=== PATIENT | female | born 1945 ===

== ENCOUNTER 2020-08-04 14:25 | Emergency (ER) | payer MEDICARE ==
[~2020-08-04] VITALS: Ht 165.1 cm; Wt 81.6 kg
[2020-08-04] MEDS ORDERED: DIATRIZOATE MEGL/DIATRIZOA SOD 30 ML BTL PO ONE (15:06)
== END 2020-08-04 16:36 | disposition home or self-care (01) ==
LOC: ER 15:20
DX: Z43.1 Encounter for attention to gastrostomy (principal); I10 Essential (primary) hypertension; E11.9 Type 2 diabetes mellitus without complications; E78.5 Hyperlipidemia, unspecified; E03.9 Hypothyroidism, unspecified; Z86.73 Personal history of transient ischemic attack (TIA), and cerebral infarction without residual deficits
CPT/HCPCS: 74018; 99284

== ENCOUNTER 2020-08-17 17:50 | Inpatient (IN) | payer MEDICARE ==
[~2020-08-17] VITALS: Ht 165.1 cm; Wt 69.6 kg
[2020-08-17] MEDS ORDERED: SODIUM CHLORIDE 0.9% 1000ML 1,000 ML IV ONE ×2 (18:15→18:30)
[2020-08-17 18:30] LABS: BASOPHILS # (AUTO) 0.1 (0.0-0.1); BASOPHILS % 0.6 % (0.0-1.0); EOSINOPHILS # (AUTO) 0.3 (0.0-0.4); EOSINOPHILS % 1.4 % (0.0-6.0); HEMATOCRIT 34.2 % (34.2-44.1); HEMOGLOBIN 10.4 g/dL (12.0-16.0); LYMPHOCYTES # (AUTO) 1.2 (1.0-3.2); LYMPHOCYTES % 5.7 % (18.0-39.1); MEAN CORPUSCULAR HEMOGLOBIN 25.1 pg (28-32); MEAN CORPUSCULAR HGB CONC 30.4 g/dL (31-35); MEAN CORPUSCULAR VOLUME 82.4 fL (81-99); MONOCYTES # (AUTO) 1.1 (0.2-0.8); MONOCYTES % 5.1 % (4.4-11.3); NEUTROPHILS % 80.2 % (38.7-80.0); PLATELET COUNT 302 x10e3/uL (140-360); RED BLOOD COUNT 4.15 x10e6/uL (3.6-5.1); RED CELL DISTRIBUTION WIDTH 16.9 % (11.7-14.4)
[2020-08-17] MEDS ORDERED: CEFEPIME 2 GM/NS 0.9% 100 ML 100 ML IV ONE (18:30)
[2020-08-17] MEDS ORDERED: SODIUM CHLORIDE 0.9% 500ML 500 ML IV ONE (18:30)
[2020-08-17 18:54] LABS: ALANINE AMINOTRANSFERASE 100 IU/L (0-55); ALBUMIN 1.9 g/dL (3.5-5.0); ALBUMIN/GLOBULIN RATIO 0.3 (0.8-2.0); ALKALINE PHOSPHATASE 145 IU/L (40-150); ANION GAP 23.7 mmol/L (8-16); BLOOD UREA NITROGEN 24 mg/dL (7-26); BUN/CREATININE RATIO 36 (6-25); CALCIUM 10.9 mg/dL (8.4-10.2); CARBON DIOXIDE 18 mmol/L (22-29); CHLORIDE 94 mmol/L (98-107); CREATINE KINASE 67 IU/L (29-168); CREATININE, SERUM 0.67 mg/dL (0.57-1.11); EST GLOMERULAR FILTRATION RATE > 60 ML/MIN (60-); GLUCOSE 231 mg/dL (74-118); POTASSIUM 4.7 mmol/L (3.5-5.1); SODIUM 131 mmol/L (136-145)
[2020-08-17 19:25] LABS: CLARITY,URINE TURBID (CLEAR); COLOR,URINE BROWN (YELLOW)
[2020-08-17 19:26] LABS: BILIRUBIN,URINE SMALL (NEGATIVE); KETONES,URINE NEGATIVE (NEGATIVE); LEUKOCYTE ESTERASE ,URINE SMALL (NEGATIVE); NITRITE,URINE NEGATIVE (NEGATIVE); PROTEIN,URINE DIPSTICK >=300 (NEGATIVE); URINE UROBILINOGEN 1 mg/dL (0.2 - 1)
[2020-08-17 19:36] LABS: BACTERIA,URINE FEW /HPF; EPITHELIAL CELLS,URINE FEW /LPF; RBC,URINE >50 /HPF (0-5)
[2020-08-17] MEDS ORDERED: NOREPINEPHRINE INJ 4MG/4ML 8 MG in DEXTROSE 5% 250ML 250 ML IV PRN (20:30)
[2020-08-17] MEDS ORDERED: NOREPINEPHRINE 8 MG/D5W 250 ML 250 ML ONE (20:53)
[2020-08-17 21:37] LABS: EOSINOPHILS % (MANUAL) 1 % (0-7); LYMPHOCYTES % (MANUAL) 5 % (19-48); METAMYELOCYTES % (MANUAL) 1 % (0-0); MONOCYTES % (MANUAL) 5 % (3.4-9.0); NEUTROPHILS % (MANUAL) 86 % (40-74); PLATELET ESTIMATE ADEQUATE; PLATELET MORPHOLOGY COMMENT NORMAL; RBC MORPHOLOGY COMMENT NORMAL
[2020-08-17] MEDS: AZITHROMYCIN 500MG/SOD CHL 0.9% 250ML BAG IV SCH (22:27)
[2020-08-17] MEDS ORDERED: VANCOMYCIN HCL 1GM/NS 250 ML BAG IV SCH (22:30)
[2020-08-17] MEDS: SODIUM CHLORIDE 0.9% 1000ML 1,000 ML IV SCH (22:32)
[2020-08-17 23:20] VITALS: BP 96/63
[2020-08-17] MEDS ORDERED: CARVEDILOL12.5 MG PEG (23:38)
[2020-08-17] MEDS ORDERED: LEVEMIR FL100 UNIT/1 SC (23:38)
[2020-08-17] MEDS ORDERED: ASPIRIN CHEW81 MG PEG (23:38)
[2020-08-17] MEDS ORDERED: HUMULIN R100 UNIT/2 SQ (23:38)
[2020-08-17] MEDS ORDERED: POLYETHYLENE GL17 GM PEG (23:38)
[2020-08-17] MEDS ORDERED: ZOFRAN4 MG PEG (23:38)
[2020-08-17] MEDS ORDERED: LIPITOR20 MG PEG (23:38)
[2020-08-17] MEDS ORDERED: ACETAMINOPHEN325 M1 PEG (23:38)
[2020-08-17] MEDS ORDERED: LEVOTHYROXINE50 MCG PEG (23:38)
[2020-08-17] MEDS ORDERED: LACTULOSE20 GM/30 M PEG (23:38)
[2020-08-17] MEDS ORDERED: ACETYLCYST200 MG/1 M INH (23:38)
[2020-08-17] MEDS ORDERED: AMLODIPINE BESYL5 MG PEG (23:38)
[2020-08-17] MEDS ORDERED: ULTRAM50 MG PEG (23:38)
[2020-08-17] MEDS ORDERED: CHLORHEXIDINE118 ML PO (23:38)
[2020-08-17] MEDS ORDERED: PREVACID30 M1 PEG (23:38)
[2020-08-17] MEDS ORDERED: IPRATROPIU0.2 MG/1 M NEB (23:38)
[2020-08-17] MEDS ORDERED: HEPARIN SO5000 UNIT/ SQ (23:38)
[2020-08-17] MEDS ORDERED: PROTEIN POWDER480 GM PEG (23:38)
[2020-08-17 23:58] VITALS: BP 96/63
[2020-08-18] VITALS (26 sets, daily range): BP systolic 109–137; BP diastolic 60–71
[2020-08-18] MEDS: IPRATROPIUM BROMIDE 0.02% 2.5 ML NEB NEB SCH ×2 (00:50→15:00)
[2020-08-18 04:45] LABS: BASOPHILS # (AUTO) 0.1 (0.0-0.1); BASOPHILS % 0.3 % (0.0-1.0); EOSINOPHILS % 0.1 % (0.0-6.0); HEMATOCRIT 27.2 % (34.2-44.1); HEMOGLOBIN 8.4 g/dL (12.0-16.0); LYMPHOCYTES # (AUTO) 0.8 (1.0-3.2); LYMPHOCYTES % 2.8 % (18.0-39.1); MEAN CORPUSCULAR HGB CONC 30.9 g/dL (31-35); MONOCYTES # (AUTO) 1.7 (0.2-0.8); MONOCYTES % 6.1 % (4.4-11.3); NEUTROPHILS # (AUTO) 24.5 (2.1-6.9); PLATELET COUNT 321 x10e3/uL (140-360); RED BLOOD COUNT 3.36 x10e6/uL (3.6-5.1); RED CELL DISTRIBUTION WIDTH 16.3 % (11.7-14.4)
[2020-08-18 05:19] LABS: ALANINE AMINOTRANSFERASE 91 IU/L (0-55); ALBUMIN 1.8 g/dL (3.5-5.0); ALBUMIN/GLOBULIN RATIO 0.3 (0.8-2.0); ALKALINE PHOSPHATASE 118 IU/L (40-150); ANION GAP 12.7 mmol/L (8-16); BLOOD UREA NITROGEN 27 mg/dL (7-26); BUN/CREATININE RATIO 47 (6-25); CALCIUM 9.7 mg/dL (8.4-10.2); CARBON DIOXIDE 22 mmol/L (22-29); CHLORIDE 104 mmol/L (98-107); CREATININE, SERUM 0.57 mg/dL (0.57-1.11); EST GLOMERULAR FILTRATION RATE > 60 ML/MIN (60-); GLUCOSE 154 mg/dL (74-118); POTASSIUM 3.7 mmol/L (3.5-5.1); SODIUM 135 mmol/L (136-145)
[2020-08-18 05:37] LABS: CREATINE KINASE MB 3.7 ng/mL (0-5.0)
[2020-08-18] MEDS: SODIUM CHLORIDE 0.9% 1000ML 1,000 ML IV SCH ×3 (05:39→19:41)
[2020-08-18] MEDS ORDERED: CEFEPIME 1GM/NS 0.9% 50 ML 50 ML IV SCH (06:00)
[2020-08-18 07:00] LABS: ANISOCYTOSIS SLIGHT; LYMPHOCYTES % (MANUAL) 2 % (19-48); MONOCYTES % (MANUAL) 4 % (3.4-9.0); NEUTROPHILS % (MANUAL) 94 % (40-74)
[2020-08-18 07:01] LABS: POLYCHROMASIA FEW; TEAR DROP CELLS FEW
[2020-08-18 07:02] LABS: BURR CELLS SLIGHT; PLATELET ESTIMATE ADEQUATE; PLATELET MORPHOLOGY COMMENT NORMAL; RBC MORPHOLOGY COMMENT NORMAL
[2020-08-18] MEDS: AZITHROMYCIN 500MG/SOD CHL 0.9% 250ML BAG IV SCH (08:19)
[2020-08-18] MEDS ORDERED: HEPARIN SOD (PORCINE) 5,000 UNIT/ML VIAL SC SCH (10:00)
[2020-08-18] MEDS ORDERED: TRAMADOL HCL 50 MG TAB PEG PRN (10:00)
[2020-08-18] MEDS ORDERED: DEXTROSE 50% SYRINGE 50 ML IV PRN (10:15)
[2020-08-18] MEDS: LEVETIRACETAM 500MG/5ML VIAL 500 MG in SODIUM CHLORIDE 0.9% 100 ML 100 ML IV SCH ×2 (11:15→22:41)
[2020-08-18] MEDS: VANCOMYCIN 1GM/NS 250 ML 250 ML IV SCH ×2 (11:16→22:41)
[2020-08-18] MEDS: NYSTATIN SUSPENSION 5 ML UDC PO SCH ×3 (11:16→23:13)
[2020-08-18] MEDS: PIPER-TAZ 3.375 GM 50 ML IV SCH ×3 (11:16→23:13)
[2020-08-18] MEDS: PANTOPRAZOLE 40 MG 10ML VIAL IV SCH (11:34)
[2020-08-18] MEDS: INSULIN LISPRO 100 UNIT/1 ML 3ML VIAL SQ SCH ×3 (12:00→23:30)
[2020-08-18 12:09] LABS: ABG HCO3 23 mmol/L (22-26); ABG PCO2 32 mmHg (35-45); ABG PH 7.46 (7.35-7.45); ABG PO2 222 mmHg (80-105); ABG TCO2 24
[2020-08-18 12:19] LABS: CREATINE KINASE MB 3.1 ng/mL (0-5.0)
[2020-08-18] MEDS ORDERED: CARVEDILOL 12.5 MG TAB PEG SCH (17:00)
[2020-08-18] MEDS: INSULIN GLARGINE 100 UNITS/ML VIAL SQ SCH (19:41)
[2020-08-19] VITALS (24 sets, daily range): BP systolic 108–149; BP diastolic 50–72
[2020-08-19 03:13] LABS: BASOPHILS # (AUTO) 0.1 (0.0-0.1); BASOPHILS % 0.4 % (0.0-1.0); EOSINOPHILS # (AUTO) 0.1 (0.0-0.4); EOSINOPHILS % 0.5 % (0.0-6.0); HEMATOCRIT 23.9 % (34.2-44.1); HEMOGLOBIN 7.3 g/dL (12.0-16.0); LYMPHOCYTES # (AUTO) 1.1 (1.0-3.2); LYMPHOCYTES % 4.9 % (18.0-39.1); MEAN CORPUSCULAR HEMOGLOBIN 24.8 pg (28-32); MEAN CORPUSCULAR HGB CONC 30.5 g/dL (31-35); MEAN CORPUSCULAR VOLUME 81.3 fL (81-99); MONOCYTES # (AUTO) 1.5 (0.2-0.8); NEUTROPHILS # (AUTO) 18.7 (2.1-6.9); NEUTROPHILS % 86.2 % (38.7-80.0); PLATELET COUNT 279 x10e3/uL (140-360); RED BLOOD COUNT 2.94 x10e6/uL (3.6-5.1)
[2020-08-19 03:33] LABS: % IRON SATURATION 8 % (15-50); ALANINE AMINOTRANSFERASE 53 IU/L (0-55); ALBUMIN 1.6 g/dL (3.5-5.0); ALBUMIN/GLOBULIN RATIO 0.3 (0.8-2.0); ALKALINE PHOSPHATASE 106 IU/L (40-150); ANION GAP 12.2 mmol/L (8-16); BLOOD UREA NITROGEN 17 mg/dL (7-26); BUN/CREATININE RATIO 30 (6-25); CALCIUM 9.6 mg/dL (8.4-10.2); CARBON DIOXIDE 21 mmol/L (22-29); CHLORIDE 111 mmol/L (98-107); CREATININE, SERUM 0.57 mg/dL (0.57-1.11); EST GLOMERULAR FILTRATION RATE > 60 ML/MIN (60-); GLUCOSE 119 mg/dL (74-118); IRON 14 ug/dL (50-170); MAGNESIUM 1.6 MG/DL (1.3-2.1); PHOSPHORUS 2.5 MG/DL (2.3-4.7); POTASSIUM 3.2 mmol/L (3.5-5.1); SODIUM 141 mmol/L (136-145); TOTAL IRON BINDING CAPACITY 178 ug/dL (261-478); TRANSFERRIN 127 mg/dL (180-382)
[2020-08-19 03:54] LABS: THYROID STIMULATING HORMONE 0.004 uIU/mL (0.350-4.940)
[2020-08-19] MEDS: NYSTATIN SUSPENSION 5 ML UDC PO SCH ×4 (05:49→23:10)
[2020-08-19] MEDS: SODIUM CHLORIDE 0.9% 1000ML 1,000 ML IV SCH ×3 (05:49→20:11)
[2020-08-19] MEDS: PIPER-TAZ 3.375 GM 50 ML IV SCH ×4 (05:49→23:10)
[2020-08-19] MEDS: INSULIN LISPRO 100 UNIT/1 ML 3ML VIAL SQ SCH ×4 (05:49→23:10)
[2020-08-19] MEDS: IPRATROPIUM BROMIDE 0.02% 2.5 ML NEB NEB SCH ×3 (07:25→22:40)
[2020-08-19] MEDS ORDERED: LEVOTHYROXINE SODIUM 50 MCG TAB PEG SCH (09:00)
[2020-08-19] MEDS: PANTOPRAZOLE 40 MG 10ML VIAL IV SCH (09:10)
[2020-08-19] MEDS: ASPIRIN 81 MG CHEW TAB PEG SCH (09:11)
[2020-08-19] MEDS: LEVETIRACETAM 500MG/5ML VIAL 500 MG in SODIUM CHLORIDE 0.9% 100 ML 100 ML IV SCH ×2 (09:11→22:02)
[2020-08-19] MEDS ORDERED: SODIUM HYPOCHLORITE 0.25% 480 ML SOLN IR ONE (11:15)
[2020-08-19] MEDS: POTASSIUM CHLORIDE 20MEQ/100ML 100 ML IV SCH ×3 (11:16→13:19)
[2020-08-19] MEDS: VANCOMYCIN 1GM/NS 250 ML 250 ML IV SCH ×2 (11:16→22:47)
[2020-08-19] MEDS: INSULIN GLARGINE 100 UNITS/ML VIAL SQ SCH (20:11)
[2020-08-20] VITALS (25 sets, daily range): BP systolic 118–162; BP diastolic 50–84
[2020-08-20 03:52] LABS: BASOPHILS # (AUTO) 0.1 (0.0-0.1); BASOPHILS % 0.4 % (0.0-1.0); EOSINOPHILS # (AUTO) 0.2 (0.0-0.4); EOSINOPHILS % 1.1 % (0.0-6.0); HEMATOCRIT 23.3 % (34.2-44.1); HEMOGLOBIN 7.1 g/dL (12.0-16.0); LYMPHOCYTES # (AUTO) 1.2 (1.0-3.2); LYMPHOCYTES % 6.8 % (18.0-39.1); MEAN CORPUSCULAR HEMOGLOBIN 24.8 pg (28-32); MEAN CORPUSCULAR HGB CONC 30.5 g/dL (31-35); MEAN CORPUSCULAR VOLUME 81.5 fL (81-99); MONOCYTES # (AUTO) 1.5 (0.2-0.8); MONOCYTES % 8.4 % (4.4-11.3); NEUTROPHILS # (AUTO) 14.5 (2.1-6.9); NEUTROPHILS % 82.4 % (38.7-80.0); PLATELET COUNT 283 x10e3/uL (140-360); RED BLOOD COUNT 2.86 x10e6/uL (3.6-5.1); RED CELL DISTRIBUTION WIDTH 17.2 % (11.7-14.4)
[2020-08-20 04:09] LABS: ANION GAP 12.2 mmol/L (8-16); BLOOD UREA NITROGEN 12 mg/dL (7-26); BUN/CREATININE RATIO 21 (6-25); CALCIUM 9.5 mg/dL (8.4-10.2); CARBON DIOXIDE 19 mmol/L (22-29); CHLORIDE 112 mmol/L (98-107); CREATININE, SERUM 0.58 mg/dL (0.57-1.11); EST GLOMERULAR FILTRATION RATE > 60 ML/MIN (60-); GLUCOSE 101 mg/dL (74-118); POTASSIUM 4.2 mmol/L (3.5-5.1); SODIUM 139 mmol/L (136-145)
[2020-08-20 04:24] LABS: MAGNESIUM 1.6 MG/DL (1.3-2.1); PHOSPHORUS 2.6 MG/DL (2.3-4.7)
[2020-08-20] MEDS: SODIUM CHLORIDE 0.9% 1000ML 1,000 ML IV SCH ×3 (05:31→20:06)
[2020-08-20] MEDS: PIPER-TAZ 3.375 GM 50 ML IV SCH ×4 (05:31→23:37)
[2020-08-20] MEDS: INSULIN LISPRO 100 UNIT/1 ML 3ML VIAL SQ SCH ×3 (05:31→18:00)
[2020-08-20] MEDS: NYSTATIN SUSPENSION 5 ML UDC PO SCH ×4 (05:31→23:13)
[2020-08-20] MEDS: IPRATROPIUM BROMIDE 0.02% 2.5 ML NEB NEB SCH ×3 (07:22→23:15)
[2020-08-20] MEDS: PANTOPRAZOLE 40 MG 10ML VIAL IV SCH (09:12)
[2020-08-20] MEDS: LEVETIRACETAM 500MG/5ML VIAL 500 MG in SODIUM CHLORIDE 0.9% 100 ML 100 ML IV SCH (09:12)
[2020-08-20] MEDS: ASPIRIN 81 MG CHEW TAB PEG SCH (09:12)
[2020-08-20] MEDS: VANCOMYCIN 1GM/NS 250 ML 250 ML IV SCH (11:00)
[2020-08-20] MEDS ORDERED: ACETAMINOPHEN 325 MG TAB PO PRN (12:45)
[2020-08-20] MEDS: INSULIN GLARGINE 100 UNITS/ML VIAL SQ SCH (21:31)
[2020-08-21] VITALS (16 sets, daily range): BP systolic 138–162; BP diastolic 50–79
[2020-08-21] MEDS: IPRATROPIUM BROMIDE 0.02% 2.5 ML NEB NEB SCH ×3 (00:01→15:16)
[2020-08-21] MEDS: INSULIN LISPRO 100 UNIT/1 ML 3ML VIAL SQ SCH ×5 (00:04→23:43)
[2020-08-21] MEDS: SODIUM CHLORIDE 0.9% 1000ML 1,000 ML IV SCH ×2 (05:30→14:51)
[2020-08-21] MEDS: PIPER-TAZ 3.375 GM 50 ML IV SCH ×4 (06:42→23:43)
[2020-08-21] MEDS: NYSTATIN SUSPENSION 5 ML UDC PO SCH ×4 (06:43→23:44)
[2020-08-21 06:45] LABS: BASOPHILS # (AUTO) 0.1 (0.0-0.1); BASOPHILS % 0.3 % (0.0-1.0); EOSINOPHILS # (AUTO) 0.1 (0.0-0.4); EOSINOPHILS % 0.2 % (0.0-6.0); LYMPHOCYTES # (AUTO) 1.3 (1.0-3.2); LYMPHOCYTES % 4.9 % (18.0-39.1); MEAN CORPUSCULAR HEMOGLOBIN 25.7 pg (28-32); MEAN CORPUSCULAR HGB CONC 31.1 g/dL (31-35); MEAN CORPUSCULAR VOLUME 82.7 fL (81-99); MONOCYTES # (AUTO) 1.7 (0.2-0.8); MONOCYTES % 6.7 % (4.4-11.3); NEUTROPHILS % 86.4 % (38.7-80.0); PLATELET COUNT 255 x10e3/uL (140-360); RED BLOOD COUNT 2.72 x10e6/uL (3.6-5.1); RED CELL DISTRIBUTION WIDTH 17.2 % (11.7-14.4)
[2020-08-21 07:07] LABS: ALANINE AMINOTRANSFERASE 26 IU/L (0-55); ALBUMIN 1.6 g/dL (3.5-5.0); ALBUMIN/GLOBULIN RATIO 0.3 (0.8-2.0); ALKALINE PHOSPHATASE 103 IU/L (40-150); ANION GAP 9.3 mmol/L (8-16); BLOOD UREA NITROGEN 9 mg/dL (7-26); BUN/CREATININE RATIO 18 (6-25); CALCIUM 8.7 mg/dL (8.4-10.2); CARBON DIOXIDE 19 mmol/L (22-29); CHLORIDE 113 mmol/L (98-107); CREATININE, SERUM 0.49 mg/dL (0.57-1.11); EST GLOMERULAR FILTRATION RATE > 60 ML/MIN (60-); GLUCOSE 93 mg/dL (74-118); POTASSIUM 3.3 mmol/L (3.5-5.1); SODIUM 138 mmol/L (136-145)
[2020-08-21 07:23] LABS: HEMATOCRIT 22.5 % (34.2-44.1)
[2020-08-21] MEDS ORDERED: POTASSIUM CHLORIDE 20MEQ/100ML 100 ML IV ONE (07:45)
[2020-08-21] MEDS: ASPIRIN 81 MG CHEW TAB PEG SCH (07:57)
[2020-08-21] MEDS: PANTOPRAZOLE 40 MG 10ML VIAL IV SCH (07:57)
[2020-08-21] MEDS: VANCOMYCIN 1GM/NS 250 ML 250 ML IV SCH (12:44)
[2020-08-21] MEDS: INSULIN GLARGINE 100 UNITS/ML VIAL SQ SCH (20:52)
[2020-08-22] VITALS (17 sets, daily range): BP systolic 130–171; BP diastolic 61–94
[2020-08-22] MEDS: SODIUM CHLORIDE 0.9% 1000ML 1,000 ML IV SCH ×4 (01:26→21:54)
[2020-08-22] MEDS: NYSTATIN SUSPENSION 5 ML UDC PO SCH ×3 (06:11→17:00)
[2020-08-22] MEDS: INSULIN LISPRO 100 UNIT/1 ML 3ML VIAL SQ SCH ×3 (06:11→18:00)
[2020-08-22] MEDS: PIPER-TAZ 3.375 GM 50 ML IV SCH ×3 (06:11→17:00)
[2020-08-22 06:30] LABS: BASOPHILS # (AUTO) 0.1 (0.0-0.1); BASOPHILS % 0.4 % (0.0-1.0); EOSINOPHILS # (AUTO) 0.3 (0.0-0.4); EOSINOPHILS % 1.9 % (0.0-6.0); HEMATOCRIT 23.3 % (34.2-44.1); LYMPHOCYTES # (AUTO) 1.3 (1.0-3.2); LYMPHOCYTES % 7.6 % (18.0-39.1); MEAN CORPUSCULAR HEMOGLOBIN 24.5 pg (28-32); MEAN CORPUSCULAR VOLUME 81.5 fL (81-99); MONOCYTES # (AUTO) 1.1 (0.2-0.8); MONOCYTES % 6.8 % (4.4-11.3); NEUTROPHILS # (AUTO) 13.5 (2.1-6.9); NEUTROPHILS % 81.7 % (38.7-80.0); PLATELET COUNT 269 x10e3/uL (140-360); RED BLOOD COUNT 2.86 x10e6/uL (3.6-5.1); RED CELL DISTRIBUTION WIDTH 17.3 % (11.7-14.4)
[2020-08-22 06:45] LABS: ANION GAP 11.3 mmol/L (8-16); BLOOD UREA NITROGEN 6 mg/dL (7-26); BUN/CREATININE RATIO 12 (6-25); CALCIUM 9.1 mg/dL (8.4-10.2); CARBON DIOXIDE 19 mmol/L (22-29); CHLORIDE 114 mmol/L (98-107); EST GLOMERULAR FILTRATION RATE > 60 ML/MIN (60-); GLUCOSE 130 mg/dL (74-118); POTASSIUM 3.3 mmol/L (3.5-5.1); SODIUM 141 mmol/L (136-145)
[2020-08-22] MEDS: IPRATROPIUM BROMIDE 0.02% 2.5 ML NEB NEB SCH ×3 (07:00→23:00)
[2020-08-22 07:01] LABS: MAGNESIUM 1.5 MG/DL (1.3-2.1); PHOSPHORUS 2.5 MG/DL (2.3-4.7)
[2020-08-22] MEDS: ASPIRIN 81 MG CHEW TAB PEG SCH (09:17)
[2020-08-22] MEDS: VANCOMYCIN 1GM/NS 250 ML 250 ML IV SCH (09:17)
[2020-08-22] MEDS: PANTOPRAZOLE 40 MG 10ML VIAL IV SCH (09:17)
[2020-08-22] MEDS: AMANTADINE HCL 100 MG CAP PO SCH ×2 (09:17→16:25)
[2020-08-22] MEDS: HYDRALAZINE HCL 20 MG/ML VIAL IV PRN (21:20)
[2020-08-22] MEDS ORDERED: HYDRALAZINE HCL 20 MG/ML VIAL ONE (21:26)
[2020-08-22] MEDS: INSULIN GLARGINE 100 UNITS/ML VIAL SQ SCH (21:26)
[2020-08-23] VITALS (18 sets, daily range): BP systolic 134–178; BP diastolic 58–86
[2020-08-23] MEDS: INSULIN LISPRO 100 UNIT/1 ML 3ML VIAL SQ SCH ×4 (01:18→18:00)
[2020-08-23] MEDS: NYSTATIN SUSPENSION 5 ML UDC PO SCH ×4 (06:31→17:06)
[2020-08-23] MEDS: PIPER-TAZ 3.375 GM 50 ML IV SCH ×4 (06:31→17:06)
[2020-08-23] MEDS: SODIUM CHLORIDE 0.9% 1000ML 1,000 ML IV SCH ×3 (06:31→23:52)
[2020-08-23] MEDS: IPRATROPIUM BROMIDE 0.02% 2.5 ML NEB NEB SCH ×3 (07:15→23:10)
[2020-08-23] MEDS: VANCOMYCIN 1GM/NS 250 ML 250 ML IV SCH (08:15)
[2020-08-23] MEDS: PANTOPRAZOLE 40 MG 10ML VIAL IV SCH (08:15)
[2020-08-23] MEDS: AMANTADINE HCL 100 MG CAP PO SCH ×2 (08:15→16:40)
[2020-08-23] MEDS: ASPIRIN 81 MG CHEW TAB PEG SCH (08:15)
[2020-08-23 12:22] LABS: BASOPHILS % 0.3 % (0.0-1.0); EOSINOPHILS # (AUTO) 0.3 (0.0-0.4); EOSINOPHILS % 2.2 % (0.0-6.0); HEMATOCRIT 24.5 % (34.2-44.1); HEMOGLOBIN 7.4 g/dL (12.0-16.0); LYMPHOCYTES % 7.4 % (18.0-39.1); MEAN CORPUSCULAR HEMOGLOBIN 24.5 pg (28-32); MEAN CORPUSCULAR HGB CONC 30.2 g/dL (31-35); MEAN CORPUSCULAR VOLUME 81.1 fL (81-99); MONOCYTES % 6.9 % (4.4-11.3); NEUTROPHILS # (AUTO) 11.5 (2.1-6.9); NEUTROPHILS % 82.1 % (38.7-80.0); PLATELET COUNT 273 x10e3/uL (140-360); RED BLOOD COUNT 3.02 x10e6/uL (3.6-5.1); RED CELL DISTRIBUTION WIDTH 17.7 % (11.7-14.4)
[2020-08-23 13:05] LABS: ALANINE AMINOTRANSFERASE 12 IU/L (0-55); ALBUMIN 1.4 g/dL (3.5-5.0); ALBUMIN/GLOBULIN RATIO 0.3 (0.8-2.0); ALKALINE PHOSPHATASE 66 IU/L (40-150); ANION GAP 8.2 mmol/L (8-16); BLOOD UREA NITROGEN 5 mg/dL (7-26); BUN/CREATININE RATIO 12 (6-25); CALCIUM 8.7 mg/dL (8.4-10.2); CARBON DIOXIDE 20 mmol/L (22-29); CHLORIDE 115 mmol/L (98-107); CREATININE, SERUM 0.43 mg/dL (0.57-1.11); EST GLOMERULAR FILTRATION RATE > 60 ML/MIN (60-); GLUCOSE 117 mg/dL (74-118); POTASSIUM 3.2 mmol/L (3.5-5.1); SODIUM 140 mmol/L (136-145)
[2020-08-23] MEDS: HYDRALAZINE HCL 20 MG/ML VIAL IV PRN (19:05)
[2020-08-23] MEDS: INSULIN GLARGINE 100 UNITS/ML VIAL SQ SCH (21:23)
[2020-08-24] VITALS (24 sets, daily range): BP systolic 129–164; BP diastolic 57–81
[2020-08-24] MEDS: NYSTATIN SUSPENSION 5 ML UDC PO SCH ×4 (00:07→16:46)
[2020-08-24] MEDS: PIPER-TAZ 3.375 GM 50 ML IV SCH ×3 (00:07→12:45)
[2020-08-24] MEDS: INSULIN LISPRO 100 UNIT/1 ML 3ML VIAL SQ SCH ×4 (00:08→18:23)
[2020-08-24 04:27] LABS: BASOPHILS % 0.2 % (0.0-1.0); EOSINOPHILS # (AUTO) 0.2 (0.0-0.4); EOSINOPHILS % 1.5 % (0.0-6.0); HEMATOCRIT 23.9 % (34.2-44.1); HEMOGLOBIN 7.4 g/dL (12.0-16.0); LYMPHOCYTES # (AUTO) 1.1 (1.0-3.2); LYMPHOCYTES % 6.6 % (18.0-39.1); MEAN CORPUSCULAR HEMOGLOBIN 24.8 pg (28-32); MEAN CORPUSCULAR VOLUME 80.2 fL (81-99); MONOCYTES # (AUTO) 0.8 (0.2-0.8); MONOCYTES % 5.1 % (4.4-11.3); NEUTROPHILS # (AUTO) 14.1 (2.1-6.9); NEUTROPHILS % 85.6 % (38.7-80.0); PLATELET COUNT 342 x10e3/uL (140-360); RED BLOOD COUNT 2.98 x10e6/uL (3.6-5.1); RED CELL DISTRIBUTION WIDTH 17.5 % (11.7-14.4)
[2020-08-24 04:42] LABS: BLOOD UREA NITROGEN < 5 mg/dL (7-26); CARBON DIOXIDE 18 mmol/L (22-29); CHLORIDE 118 mmol/L (98-107); CREATININE, SERUM 0.39 mg/dL (0.57-1.11); EST GLOMERULAR FILTRATION RATE > 60 ML/MIN (60-); GLUCOSE 100 mg/dL (74-118); SODIUM 142 mmol/L (136-145)
[2020-08-24 04:46] LABS: BUN/CREATININE RATIO 13 (6-25)
[2020-08-24] MEDS: SODIUM CHLORIDE 0.9% 1000ML 1,000 ML IV SCH ×3 (05:50→21:30)
[2020-08-24] MEDS: POTASSIUM CHLORIDE 20MEQ/15ML UDC NG PRN ×2 (05:50→09:01)
[2020-08-24] MEDS: IPRATROPIUM BROMIDE 0.02% 2.5 ML NEB NEB SCH ×3 (07:15→23:55)
[2020-08-24] MEDS: VANCOMYCIN 1GM/NS 250 ML 250 ML IV SCH (08:50)
[2020-08-24] MEDS: PANTOPRAZOLE 40 MG 10ML VIAL IV SCH (08:50)
[2020-08-24] MEDS: AMANTADINE HCL 50 MG/5 ML SOLUTION NG SCH ×2 (08:50→16:45)
[2020-08-24] MEDS: ASPIRIN 81 MG CHEW TAB PEG SCH (08:51)
[2020-08-24] MEDS: MEROPENEM 500MG/ NS 50ML 50 ML IV SCH (16:45)
[2020-08-24] MEDS: INSULIN GLARGINE 100 UNITS/ML VIAL SQ SCH (21:00)
[2020-08-25] VITALS (25 sets, daily range): BP systolic 138–176; BP diastolic 61–99
[2020-08-25] MEDS: MEROPENEM 500MG/ NS 50ML 50 ML IV SCH ×3 (00:55→16:34)
[2020-08-25] MEDS: NYSTATIN SUSPENSION 5 ML UDC PO SCH ×2 (00:55→05:45)
[2020-08-25] MEDS: INSULIN LISPRO 100 UNIT/1 ML 3ML VIAL SQ SCH ×4 (00:57→18:28)
[2020-08-25] MEDS: SODIUM CHLORIDE 0.9% 1000ML 1,000 ML IV SCH (03:00)
[2020-08-25 05:09] LABS: BASOPHILS % 0.3 % (0.0-1.0); EOSINOPHILS # (AUTO) 0.2 (0.0-0.4); EOSINOPHILS % 1.3 % (0.0-6.0); HEMATOCRIT 22.4 % (34.2-44.1); LYMPHOCYTES # (AUTO) 0.9 (1.0-3.2); LYMPHOCYTES % 7.4 % (18.0-39.1); MEAN CORPUSCULAR HEMOGLOBIN 25.6 pg (28-32); MEAN CORPUSCULAR HGB CONC 31.3 g/dL (31-35); MEAN CORPUSCULAR VOLUME 82.1 fL (81-99); MONOCYTES # (AUTO) 0.8 (0.2-0.8); MONOCYTES % 6.6 % (4.4-11.3); NEUTROPHILS % 83.6 % (38.7-80.0); PLATELET COUNT 326 x10e3/uL (140-360); RED BLOOD COUNT 2.73 x10e6/uL (3.6-5.1); RED CELL DISTRIBUTION WIDTH 17.9 % (11.7-14.4)
[2020-08-25 05:21] LABS: ANION GAP 9.7 mmol/L (8-16); BLOOD UREA NITROGEN < 5 mg/dL (7-26); CALCIUM 8.4 mg/dL (8.4-10.2); CARBON DIOXIDE 19 mmol/L (22-29); CHLORIDE 117 mmol/L (98-107); CREATININE, SERUM 0.42 mg/dL (0.57-1.11); EST GLOMERULAR FILTRATION RATE > 60 ML/MIN (60-); GLUCOSE 117 mg/dL (74-118); POTASSIUM 3.7 mmol/L (3.5-5.1); SODIUM 142 mmol/L (136-145)
[2020-08-25 05:24] LABS: BUN/CREATININE RATIO 12 (6-25)
[2020-08-25] MEDS: IPRATROPIUM BROMIDE 0.02% 2.5 ML NEB NEB SCH ×3 (08:05→23:10)
[2020-08-25] MEDS: PANTOPRAZOLE 40 MG 10ML VIAL IV SCH (09:25)
[2020-08-25] MEDS: ASPIRIN 81 MG CHEW TAB PEG SCH (09:25)
[2020-08-25] MEDS: AMANTADINE HCL 50 MG/5 ML SOLUTION NG SCH ×2 (09:25→16:34)
[2020-08-25] MEDS: VANCOMYCIN 1GM/NS 250 ML 250 ML IV SCH (10:00)
[2020-08-25] MEDS: INSULIN GLARGINE 100 UNITS/ML VIAL SQ SCH (21:21)
[2020-08-26] VITALS (20 sets, daily range): BP systolic 110–176; BP diastolic 56–99
[2020-08-26] MEDS: INSULIN LISPRO 100 UNIT/1 ML 3ML VIAL SQ SCH ×4 (01:01→18:00)
[2020-08-26] MEDS: MEROPENEM 500MG/ NS 50ML 50 ML IV SCH ×3 (01:01→17:15)
[2020-08-26 05:51] LABS: BASOPHILS % 0.3 % (0.0-1.0); EOSINOPHILS # (AUTO) 0.2 (0.0-0.4); HEMATOCRIT 24.1 % (34.2-44.1); HEMOGLOBIN 7.2 g/dL (12.0-16.0); LYMPHOCYTES % 9.5 % (18.0-39.1); MEAN CORPUSCULAR HEMOGLOBIN 24.2 pg (28-32); MEAN CORPUSCULAR HGB CONC 29.9 g/dL (31-35); MEAN CORPUSCULAR VOLUME 81.1 fL (81-99); MONOCYTES # (AUTO) 0.9 (0.2-0.8); MONOCYTES % 7.9 % (4.4-11.3); NEUTROPHILS # (AUTO) 8.6 (2.1-6.9); NEUTROPHILS % 79.6 % (38.7-80.0); PLATELET COUNT 373 x10e3/uL (140-360); RED BLOOD COUNT 2.97 x10e6/uL (3.6-5.1); RED CELL DISTRIBUTION WIDTH 17.8 % (11.7-14.4)
[2020-08-26 06:20] LABS: ANION GAP 9.5 mmol/L (8-16); BLOOD UREA NITROGEN < 5 mg/dL (7-26); CALCIUM 8.7 mg/dL (8.4-10.2); CARBON DIOXIDE 21 mmol/L (22-29); CHLORIDE 113 mmol/L (98-107); CREATININE, SERUM 0.44 mg/dL (0.57-1.11); EST GLOMERULAR FILTRATION RATE > 60 ML/MIN (60-); GLUCOSE 111 mg/dL (74-118); POTASSIUM 3.5 mmol/L (3.5-5.1); SODIUM 140 mmol/L (136-145)
[2020-08-26 06:25] LABS: BUN/CREATININE RATIO 11 (6-25)
[2020-08-26] MEDS: HYDRALAZINE HCL 20 MG/ML VIAL IV PRN (06:31)
[2020-08-26] MEDS: IPRATROPIUM BROMIDE 0.02% 2.5 ML NEB NEB SCH ×2 (07:23→15:25)
[2020-08-26] MEDS ORDERED: METOPROLOL TARTRATE INJ 1 MG/ML VIAL IV ONE (08:15)
[2020-08-26] MEDS: PANTOPRAZOLE 40 MG 10ML VIAL IV SCH (09:13)
[2020-08-26] MEDS: ASPIRIN 81 MG CHEW TAB PEG SCH (09:13)
[2020-08-26] MEDS: CARVEDILOL 12.5 MG TAB PO SCH ×2 (09:14→17:21)
[2020-08-26] MEDS: AMANTADINE HCL 50 MG/5 ML SOLUTION NG SCH ×2 (12:10→17:16)
== END 2020-08-26 20:35 | DRG 870 ==
LOC: ER 18:22 → ERHOLD 21:30 → ICU 22:56
PROVIDERS: ADMIT Internal Medicine; ATTEND Internal Medicine
PROC: 02HV33Z Insertion of Infusion Device into Superior Vena Cava, Percutaneous Approach (ICD-10-PCS; principal; 2020-08-17)
PROC: 5A1955Z Respiratory Ventilation, Greater than 96 Consecutive Hours (ICD-10-PCS; 2020-08-17)
PROC: B548ZZA Ultrasonography of Superior Vena Cava, Guidance (ICD-10-PCS; 2020-08-17)
PROC: 3E043XZ Introduction of Vasopressor into Central Vein, Percutaneous Approach (ICD-10-PCS; 2020-08-17)
PROC: 5A12012 Performance of Cardiac Output, Single, Manual (ICD-10-PCS; 2020-08-17)
PROC: 02HV33Z Insertion of Infusion Device into Superior Vena Cava, Percutaneous Approach (ICD-10-PCS; 2020-08-18)
PROC: B548ZZA Ultrasonography of Superior Vena Cava, Guidance (ICD-10-PCS; 2020-08-18)
DX: A41.9 Sepsis, unspecified organism (principal); L89.323 Pressure ulcer of left buttock, stage 3; L89.313 Pressure ulcer of right buttock, stage 3; L89.154 Pressure ulcer of sacral region, stage 4; R65.21 Severe sepsis with septic shock; J96.90 Respiratory failure, unspecified, unspecified whether with hypoxia or hypercapnia; I46.9 Cardiac arrest, cause unspecified; J69.0 Pneumonitis due to inhalation of food and vomit; G93.6 Cerebral edema; R57.0 Cardiogenic shock; M86.9 Osteomyelitis, unspecified; Z16.24 Resistance to multiple antibiotics; R40.3 Persistent vegetative state; Z16.12 Extended spectrum beta lactamase (ESBL) resistance; E03.9 Hypothyroidism, unspecified; J43.9 Emphysema, unspecified; I48.91 Unspecified atrial fibrillation; Z79.01 Long term (current) use of anticoagulants; I10 Essential (primary) hypertension; D63.8 Anemia in other chronic diseases classified elsewhere; Z93.1 Gastrostomy status; Z74.01 Bed confinement status; Z66 Do not resuscitate; R43.0 Anosmia; I69.398 Other sequelae of cerebral infarction; E11.9 Type 2 diabetes mellitus without complications; E78.5 Hyperlipidemia, unspecified; Z93.0 Tracheostomy status; E87.6 Hypokalemia; Z87.01 Personal history of pneumonia (recurrent); B96.89 Other specified bacterial agents as the cause of diseases classified elsewhere; B96.4 Proteus (mirabilis) (morganii) as the cause of diseases classified elsewhere; B96.1 Klebsiella pneumoniae [K. pneumoniae] as the cause of diseases classified elsewhere
CPT/HCPCS: 36415; 36555; 36569; 36600; 70450; 71045; 71250; 74018; 80048; 80053; 80202; 81001; 82550; 82553; 82607; 82746; 82805; 82948; 83540; 83605; 83735; 84100; 84443; 84466; 84484; 85025; 87040; 87071; 87086; 87186; 87205; 93005; 93306; 93971; 94002; 94003; 94640; 95812; 99251; J0360; J0456; J0692; J1815; J2543; J3370; J3480; J7030; J7040; U0002

== ENCOUNTER 2020-09-14 19:33 | Inpatient (IN) | payer MEDICARE ==
[~2020-09-14] VITALS: Ht 160 cm; Wt 63.0 kg
[~2020-09-14 19:33] MED LIST: ACETAMINOPHEN325 M1 PEG; ACETYLCYST200 MG/1 M INH; AMLODIPINE BESYL5 MG PEG; ASPIRIN CHEW81 MG PEG; CARVEDILOL12.5 MG PEG; CHLORHEXIDINE118 ML PO; HEPARIN SO5000 UNIT/ SQ; HUMULIN R100 UNIT/2 SQ; IPRATROPIU0.2 MG/1 M NEB; LACTULOSE20 GM/30 M PEG; LEVEMIR FL100 UNIT/1 SC; LEVOTHYROXINE50 MCG PEG; LIPITOR20 MG PEG; POLYETHYLENE GL17 GM PEG; PREVACID30 M1 PEG; PROTEIN POWDER480 GM PEG; ULTRAM50 MG PEG; ZOFRAN4 MG PEG
--- NOTE | 2020-09-14 20:23 | Emergency Department Note ---
History of Present Illnes History of Present Illness Chief Complaint: General Medicine Complaints History of Present Illness This is a 75 year old Unknown female came in [facility] from [facility] for evaluation of abnormal labs, pt reported to have elevated creatinine level, low Hgb level, elevated WBC levels, pt is a DNR, on a mechanical ventilator, no report from facility regarding COVID testing, pt has had a goyal catheter for 2 weeks with cloudy, sediment filled urine, PT HAS DNR PAPERWORK FROM RETIREMENT. PER RECORD FROM PT'S LAST ADMISSION TO THE FACILITY SHE WAS DNR THEN WELL. Historian: Application Analyst/EMS Arrival Mode: [facility] History limited by: condition of the patient (PT IN PERSISTENT VEGATATIVE STATE WHICH IS HER BASELINE) Occupational Analyst Required: No Onset (how long ago): unknown Location: NONE Quality: PT IN VEGATATIVE STATE, Progression: unable to specify Past Medical/Family History Physician Review I have reviewed the patient's past medical and family history. Any updates have been documented here. Past Medical History Recent Fever: Yes Clinical Suspicion of Infectio: Yes New/Unexplained Change in Ment: No Past Medical History: Hypertension, Diabetes, CVA, A-Fib, Hypothyroidism, Hyperlipedemia Other Medical History: TRACH(D/T RESP FAILURE)02 6 LPM Other Surgery: TRACH(O2 DEPENDENT) CRANIOTOMY PEG Social History Unable to obtain PSH: Unable to obtain due to, other (PT IN PERSISTENT VEGETATIVE STATE) Review of Systems ROS Narrative Unable to obtain ROS: Unable to obtain due to, other (PT IN PERSISTENT VEGETATIVE STATE) Physical Exam Related Data Allergies: Coded Allergies: No Known Allergies (Unverified , 08/04/20) Triage Vital Signs Vital Signs Date Time Temp Pulse Resp B/P (MAP) Pulse Ox O2 Delivery O2 Flow Rate FiO2 09/14/20 19:38 90 30 135/78 96 Trach Collar Vital signs reviewed: Yes Physical Exam CONSTITUTIONAL Constitutional: Present well-developed, Present well-nourished HENT HENT: Present normocephalic, Present atraumatic, Present oropharynx clear/moist, Present nose normal HENT L/R: Present left ext ear normal, Present right ext ear normal EYES Eyes: Reports PERRL, Reports conjunctivae normal NECK Neck: Present ROM normal, Present supple, Present other (TRACH PRESENT) PULMONARY Pulmonary: Present effort normal, Present rhonchi (THROUGHOUT) CARDIOVASCULAR Cardiovascular: Present irregular rhythm, Present heart sounds normal, Present capillary refill normal, Present normal rate GASTROINTESTINAL Abdominal: Present soft, Present nontender, Present bowel sounds normal GENITOURINARY Genitourinary: Present exam deferred, Present other (INDWELLING GOYAL CATHETER PRESENT ON ARRIVAL) SKIN Skin: Present warm, Present dry MUSCULOSKELETAL Musculoskeletal: Present ROM normal NEUROLOGICAL Neurological: Present other (UNABLE TO ASSESS PT IN PERSISTENT VEGETATIVE STATE) PSYCHOLOGICAL Psychological: Present other (UNABLE TO ASSESS PT IN PERSITENT VEGETATIVE STATE) Results Laboratory Laboratory Laboratory Tests Test 09/14/20 20:15 09/14/20 19:47 09/14/20 19:43 White Blood Count 16.03 x10e3/uL (4.8-10.8) Red Blood Count 2.83 x10e6/uL (3.6-5.1) Hemoglobin 6.6 g/dL (12.0-16.0) Hematocrit 21.9 % (34.2-44.1) Mean Corpuscular Volume 77.4 fL (81-99) Mean Corpuscular Hemoglobin 23.3 pg (28-32) Mean Corpuscular Hemoglobin Concent 30.1 g/dL (31-35) Red Cell Distribution Width 18.5 % (11.7-14.4) Platelet Count 271 x10e3/uL (140-360) Neutrophils (%) (Auto) 87.5 % (38.7-80.0) Lymphocytes (%) (Auto) 4.8 % (18.0-39.1) Monocytes (%) (Auto) 5.2 % (4.4-11.3) Eosinophils (%) (Auto) 1.4 % (0.0-6.0) Basophils (%) (Auto) 0.2 % (0.0-1.0) Neutrophils # (Auto) 14.0 (2.1-6.9) Lymphocytes # (Auto) 0.8 (1.0-3.2) Monocytes # (Auto) 0.8 (0.2-0.8) Eosinophils # (Auto) 0.2 (0.0-0.4) Basophils # (Auto) 0.0 (0.0-0.1) Absolute Immature Granulocyte (auto 0.14 x10e3/uL (0-0.1) Urine Color Yellow (YELLOW) Urine Clarity Turbid (CLEAR) Urine pH 9 (5 - 7) Urine Specific Franklin 1.015 (1.010-1.025) Urine Protein 1+ (NEGATIVE) Urine Glucose (UA) Negative (NEGATIVE) Urine Ketones Negative (NEGATIVE) Urine Blood Large (NEGATIVE) Urine Nitrite Positive (NEGATIVE) Urine Bilirubin Negative (NEGATIVE) Urine Urobilinogen 1 mg/dL (0.2 - 1) Urine Leukocyte Esterase Large (NEGATIVE) Urine RBC 11-20 /HPF (0-5) Urine WBC 11-20 /HPF (0-5) Urine Epithelial Cells Moderate /LPF (NONE) Urine Calcium Oxalate Crystals Few (FEW) Urine Amorphous Sediment Moderate (FEW) Urine Bacteria Many /HPF (NONE) Sodium Level 135 mmol/L (136-145) Potassium Level 4.1 mmol/L (3.5-5.1) Chloride Level 99 mmol/L (98-107) Carbon Dioxide Level 25 mmol/L (22-29) Anion Gap 15.1 mmol/L (8-16) Blood Urea Nitrogen 24 mg/dL (7-26) Creatinine 0.57 mg/dL (0.57-1.11) Estimat Glomerular Filtration Rate > 60 ML/MIN (60-) BUN/Creatinine Ratio 42 (6-25) Glucose Level 99 mg/dL (74-118) Lactic Acid Level 1.3 mmol/L (0.5-2.0) Calcium Level 9.5 mg/dL (8.4-10.2) Total Bilirubin 0.6 mg/dL (0.2-1.2) Aspartate Amino Transf (AST/SGOT) 22 IU/L (5-34) Alanine Aminotransferase (ALT/SGPT) 13 IU/L (0-55) Alkaline Phosphatase 105 IU/L (40-150) Creatine Kinase 27 IU/L (29-168) Creatine Kinase MB 2.00 ng/mL (0-5.0) Troponin I 0.001 ng/mL (0-0.300) B-Type Natriuretic Peptide 408.4 pg/mL (0-100) Total Protein 8.2 g/dL (6.5-8.1) Albumin 1.7 g/dL (3.5-5.0) Globulin 6.5 g/dL (2.3-3.5) Albumin/Globulin Ratio 0.3 (0.8-2.0) Coronavirus (PCR) Not detected (NOTDETECTED) Influenza Virus Types A,B Antigen Negative (NEGATIVE) Laboratory Tests Test 09/14/20 19:47 09/14/20 19:43 Imaging Imaging results reviewed: Yes Impressions Procedure: [id number] DX/CHEST SINGLE (PORTABLE) Exam Date: 09/14/20 Exam Time: 2033 REPORT STATUS: Signed EXAMINATION: CHEST SINGLE (PORTABLE) INDICATION: ^Y ^reported wbc of 25k, ^20200914 ^2033 ^Y COMPARISON: 08/25/2012 FINDINGS: AP view TUBES and LINES: Stable tracheostomy tube. LUNGS: Limited by rotation. Lungs are well inflated. Diffuse bilateral airspace opacities, slightly increased from prior exam. PLEURA: No pneumothorax. Suspected trace bilateral pleural effusions. HEART AND MEDIASTINUM: The cardiomediastinal silhouette is enlarged, accentuated by rotation.. BONES AND SOFT TISSUES: No acute osseous lesion. Soft tissues are unremarkable. UPPER ABDOMEN: No free air under the diaphragm. IMPRESSION: Diffuse bilateral airspace opacities, representing edema and/or pneumonia, slightly worsened compared to prior x-ray. Signed by: Dr. Boston Dockery MD on 09/14/2020 9:17 PM Dictated By: BOSTON DOCKERY MD 16 Transcribed By: MAEGAN on 09/14/202116 COPY TO: MELITON SCRUGGS MD~ Procedures 12 Lead ECG Interpretation ECG Interpretation : ECG: ECG 1 Occupational Analyst: Interpreted by ED physician Date: Sep 14, 2020 Time: 19:59 Rhythm: atrial fibrillation Rate: normal BPM: 83 QRS axis: normal ST segments normal: No (NON SPECICIFC CHANGES) T waves normal: No T wave inversion: aVF, V3 T waves flattening: II, III, V4, V5, V6 Other findings: prolonged QTc interval Clinical Impression: abnormal ECG Assessment & Plan Medical Decision Making [facility] PT WITH REPORTED ABNORMAL LABS CBC, CMP, EKG, CXR, CARDIAC ENZYMES, UA, ORDERED TO EVAL FOR ELECTROLYTE ABNORMALITY, RENAL FAILURE, UTI, PNEUMONIA, ANEMIA, PULMONARY EDEMA I SPOKE WITH DR Nirmal MACDONALD AND DR MA, PLACE IN ICU DUE TO VENT DEPENDENCE Assessment & Plan Final Impression: (1) Anemia (2) UTI (urinary tract infection) due to urinary indwelling catheter (3) Indwelling catheter present on admission (4) Pneumonia Depart Disposition: ADMITTED Last Vital Signs Date Time Temp Pulse Resp B/P (MAP) Pulse Ox O2 Delivery O2 Flow Rate FiO2 09/14/20 19:38 90 30 135/78 96 Trach Collar Home Meds Reported Medications Protein Supplement (Protein Powder) 480 Gm Powder, 1 PACKET PEG BID 08/17/20 Tramadol Hcl (ULTRAM) 50 Mg Tablet, 50 MG PEG Q6H PRN for MODERATE PAIN (4-6), TAB 08/17/20 Polyethylene Glycol 3350 (POLYETHYLENE GLYCOL 3350) 17 Gm Powd.pack, 17 GM PEG DAILY, PACKET 08/17/20 Ondansetron Hcl* (ZOFRAN*) 4 Mg Tablet, 4 MG PEG Q8H PRN for NAUSEA AND VOMITING 08/17/20 Levothyroxine Sodium (LEVOTHYROXINE SODIUM) 50 Mcg Tablet, 25 MCG PEG DAILY, #30 TAB 08/17/20 Lansoprazole (PREVACID) 30 Mg Tab.rap.dr, 30 MG PEG DAILY 08/17/20 Lactulose (LACTULOSE) 20 Gm/30 Ml Solution, 30 ML PEG Q12H PRN for CONSTIPATION, EACH 08/17/20 Ipratropium Dyke (IPRATROPIUM BROMIDE) 0.2 Mg/1 Ml Solution, 2.5 ML NEB Q8H, EACH 08/17/20 Insulin Regular, Human (HUMULIN R) 100 Unit/1 Ml Vial, 1 UNIT SQ Q6H 08/17/20 Insulin Detemir (Levemir Flextouch) 100 Unit/1 Ml Insuln.pen, 10 UNITS SC HS, UNIT 08/17/20 Heparin Sodium,Porcine (HEPARIN SODIUM) 5,000 Unit/1 Ml Vial, 5000 UNITS SQ Q12H, ML 08/17/20 Chlorhexidine Gluconate (CHLORHEXIDINE GLUCONATE) 118 Ml Liquid, 15 ML PO Q12H 08/17/20 Carvedilol (CARVEDILOL) 12.5 Mg Tablet, 25 MG PEG BID, #60 TAB 08/17/20 Atorvastatin Calcium (LIPITOR) 20 Mg Tablet, 40 MG PEG HS, TAB 08/17/20 Amlodipine Besylate (AMLODIPINE BESYLATE) 5 Mg Tablet, 5 MG PEG DAILY, #30 TAB 08/17/20 Aspirin (ASPIRIN CHEW) 81 Mg Chew, 81 MG PEG DAILY, #30 TAB 08/17/20 Acetylcysteine (ACETYLCYSTEINE) 200 Mg/1 Ml Vial, 4 ML INH Q12H 08/17/20 Acetaminophen (ACETAMINOPHEN) 325 Mg Tablet, 650 MG PEG Q6H PRN for Mild Pain (1-3) or Fever>100.8, TAB 08/17/20 MELITON SCRUGGS MD Sep 14, 2020 20:23
[2020-09-14 20:32] LABS: BASOPHILS % 0.2 % (0.0-1.0); CLARITY,URINE TURBID (CLEAR); COLOR,URINE YELLOW (YELLOW); EOSINOPHILS # (AUTO) 0.2 (0.0-0.4); EOSINOPHILS % 1.4 % (0.0-6.0); LYMPHOCYTES # (AUTO) 0.8 (1.0-3.2); LYMPHOCYTES % 4.8 % (18.0-39.1); MEAN CORPUSCULAR HEMOGLOBIN 23.3 pg (28-32); MEAN CORPUSCULAR HGB CONC 30.1 g/dL (31-35); MEAN CORPUSCULAR VOLUME 77.4 fL (81-99); MONOCYTES # (AUTO) 0.8 (0.2-0.8); MONOCYTES % 5.2 % (4.4-11.3); NEUTROPHILS % 87.5 % (38.7-80.0); PLATELET COUNT 271 x10e3/uL (140-360); RED BLOOD COUNT 2.83 x10e6/uL (3.6-5.1); RED CELL DISTRIBUTION WIDTH 18.5 % (11.7-14.4)
[2020-09-14 20:33] LABS: BILIRUBIN,URINE NEGATIVE (NEGATIVE); KETONES,URINE NEGATIVE (NEGATIVE); LEUKOCYTE ESTERASE ,URINE LARGE (NEGATIVE); NITRITE,URINE POSITIVE (NEGATIVE); PROTEIN,URINE DIPSTICK 1+ (NEGATIVE); URINE UROBILINOGEN 1 mg/dL (0.2 - 1)
[2020-09-14 20:34] LABS: HEMATOCRIT 21.9 % (34.2-44.1); HEMOGLOBIN 6.6 g/dL (12.0-16.0)
[2020-09-14 20:43] LABS: BACTERIA,URINE MANY /HPF; EPITHELIAL CELLS,URINE MODERATE /LPF
[2020-09-14 20:44] LABS: AMORPHOUS SEDIMENT,URINE MODERATE (FEW); CALCIUM OXALATE CRYSTALS,UR FEW (FEW)
[2020-09-14] MEDS ORDERED: CEFTRIAXONE SOD 1 GM/NS 50 ML 50 ML IV ONE (20:45)
[2020-09-14 20:47] LABS: ALANINE AMINOTRANSFERASE 13 IU/L (0-55); ALBUMIN 1.7 g/dL (3.5-5.0); ALBUMIN/GLOBULIN RATIO 0.3 (0.8-2.0); ALKALINE PHOSPHATASE 105 IU/L (40-150); ANION GAP 15.1 mmol/L (8-16); BLOOD UREA NITROGEN 24 mg/dL (7-26); BUN/CREATININE RATIO 42 (6-25); CALCIUM 9.5 mg/dL (8.4-10.2); CARBON DIOXIDE 25 mmol/L (22-29); CHLORIDE 99 mmol/L (98-107); CREATINE KINASE 27 IU/L (29-168); CREATININE, SERUM 0.57 mg/dL (0.57-1.11); EST GLOMERULAR FILTRATION RATE > 60 ML/MIN (60-); GLUCOSE 99 mg/dL (74-118); POTASSIUM 4.1 mmol/L (3.5-5.1); SODIUM 135 mmol/L (136-145)
--- NOTE | 2020-09-14 21:20 | Diagnostic Imaging Report ---
EXAMINATION: CHEST SINGLE (PORTABLE) INDICATION: ^Y ^reported wbc of 25k, ^20200914 ^2033 ^Y COMPARISON: 08/25/2012 FINDINGS: AP view TUBES and LINES: Stable tracheostomy tube. LUNGS: Limited by rotation. Lungs are well inflated. Diffuse bilateral airspace opacities, slightly increased from prior exam. PLEURA: No pneumothorax. Suspected trace bilateral pleural effusions. HEART AND MEDIASTINUM: The cardiomediastinal silhouette is enlarged, accentuated by rotation.. BONES AND SOFT TISSUES: No acute osseous lesion. Soft tissues are unremarkable. UPPER ABDOMEN: No free air under the diaphragm. IMPRESSION: Diffuse bilateral airspace opacities, representing edema and/or pneumonia, slightly worsened compared to prior x-ray. Signed by: Dr. Boston Vásquez MD on 09/14/2020 9:17 PM
[2020-09-14] MEDS ORDERED: CEFTRIAXONE SOD 1 GRAM/0.9% SOD CHL 50ML BAG IV SCH (21:30)
[2020-09-14] MEDS ORDERED: SODIUM CHLORIDE FLUSH 10 ML SYR INJ PRN (21:30)
[2020-09-14] MEDS ORDERED: SODIUM CHLORIDE 0.9% 250ML 250 ML IV ONE (21:30)
[2020-09-14] MEDS ORDERED: FUROSEMIDE INJ 10 MG/ML 2 ML VIAL IV ONE (21:30)
[2020-09-14] MEDS ORDERED: AZITHROMYCIN 500MG/SOD CHL 0.9% 250ML BAG IV SCH (22:00)
[2020-09-14 23:00] VITALS: BP 101/57
[2020-09-14] MEDS ORDERED: VANCOMYCIN HCL 1GM/NS 250 ML BAG IV SCH (23:00)
[2020-09-15] VITALS (25 sets, daily range): BP systolic 93–139; BP diastolic 50–76
--- NOTE | 2020-09-15 02:14 | Diagnostic Imaging Report ---
EXAMINATION: CHEST XRAY LINE PLACEMENT INDICATION: ^PICC INSERTION COMPARISON: 09/14/2020 FINDINGS: AP view TUBES and LINES: Stable tracheostomy tube. Interval placement of right PICC with tip projecting over cavoatrial junction. LUNGS: Limited by slight rotation. Lungs are well inflated. Again seen bilateral airspace opacities. PLEURA: No significant pleural effusion or pneumothorax. HEART AND MEDIASTINUM: The cardiomediastinal silhouette is enlarged. BONES AND SOFT TISSUES: No acute osseous lesion. Soft tissues are unremarkable. UPPER ABDOMEN: No free air under the diaphragm. IMPRESSION: New right PICC in place with tip projecting over cavoatrial junction. No pneumothorax. Redemonstration of diffuse bilateral airspace opacities. Signed by: Dr. Boston Vásquez MD on 09/15/2020 2:10 AM
[2020-09-15 09:15] LABS: BASOPHILS % 0.2 % (0.0-1.0); EOSINOPHILS # (AUTO) 0.1 (0.0-0.4); EOSINOPHILS % 0.7 % (0.0-6.0); HEMATOCRIT 26.1 % (34.2-44.1); HEMOGLOBIN 8.1 g/dL (12.0-16.0); LYMPHOCYTES # (AUTO) 0.8 (1.0-3.2); LYMPHOCYTES % 6.1 % (18.0-39.1); MEAN CORPUSCULAR HEMOGLOBIN 23.8 pg (28-32); MEAN CORPUSCULAR VOLUME 76.5 fL (81-99); MONOCYTES # (AUTO) 0.9 (0.2-0.8); MONOCYTES % 6.4 % (4.4-11.3); NEUTROPHILS # (AUTO) 11.5 (2.1-6.9); NEUTROPHILS % 85.9 % (38.7-80.0); PLATELET COUNT 232 x10e3/uL (140-360); RED BLOOD COUNT 3.41 x10e6/uL (3.6-5.1); RED CELL DISTRIBUTION WIDTH 17.1 % (11.7-14.4)
[2020-09-15 09:33] LABS: ALANINE AMINOTRANSFERASE 13 IU/L (0-55); ALBUMIN 1.7 g/dL (3.5-5.0); ALBUMIN/GLOBULIN RATIO 0.3 (0.8-2.0); ALKALINE PHOSPHATASE 104 IU/L (40-150); BLOOD UREA NITROGEN 20 mg/dL (7-26); BUN/CREATININE RATIO 34 (6-25); CALCIUM 9.2 mg/dL (8.4-10.2); CARBON DIOXIDE 24 mmol/L (22-29); CHLORIDE 101 mmol/L (98-107); CREATININE, SERUM 0.58 mg/dL (0.57-1.11); EST GLOMERULAR FILTRATION RATE > 60 ML/MIN (60-); GLUCOSE 87 mg/dL (74-118); SODIUM 134 mmol/L (136-145)
[2020-09-15 10:01] LABS: CREATINE KINASE MB 1.6 ng/mL (0-5.0)
[2020-09-15] MEDS ORDERED: POTASSIUM CHLORIDE 20 MEQ TAB CR PO PRN (10:45)
[2020-09-15] MEDS ORDERED: DEXTROSE 50% SYRINGE 50 ML IV PRN (10:45)
[2020-09-15] MEDS ORDERED: DOCUSATE SODIUM 100 MG CAP PO PRN (10:45)
[2020-09-15] MEDS ORDERED: ACETAMINOPHEN 325 MG TAB PO PRN (10:45)
[2020-09-15] MEDS ORDERED: HYDRALAZINE HCL 20 MG/ML VIAL IV PRN (10:45)
[2020-09-15] MEDS ORDERED: ONDANSETRON HCL INJ 2MG/ML 2ML 2 MG/ML VIAL IV PRN (10:45)
[2020-09-15] MEDS ORDERED: TRAMADOL HCL 50 MG TAB PO PRN (10:45)
[2020-09-15] MEDS ORDERED: SIMETHICONE 80 MG CHEW PO PRN (10:45)
[2020-09-15] MEDS ORDERED: ALBUTEROL/IPRATROPIUM 3 ML NEB NEB PRN (10:45)
[2020-09-15] MEDS ORDERED: ACETYLCYSTEINE 20% INHAL SOLN 30 ML VIAL INH SCH (13:30)
[2020-09-15] MEDS ORDERED: CHLORHEXIDINE GLUCONATE 4% 120 ML BTL TOP SCH (13:30)
[2020-09-15] MEDS ORDERED: LACTULOSE SYRUP 20 GM/30 ML UDC PEG PRN (13:30)
--- NOTE | 2020-09-15 13:36 | History and Physical ---
CHIEF COMPLAINT: Altered mental status at baseline; baseline vegetative state; anemia; and UTI. HISTORY OF PRESENT ILLNESS: This is a 75-year-old -[place] female, who is currently residing at [facility] on a mechanical ventilator. Her history is complicated. She had CVA in the past, had a craniotomy, who apparently back in July of 2020 this year came in with cardiac arrest and was in CPR in progress, now presents with underlying anemia and worsening condition. The patient at baseline, is at a vegetative state. She is chronically on respiratory failure with tracheostomy on the vent. She also has a PEG tube placement for feeding. She also has significant sacral wound. The patient was seen and evaluated at bedside on the medical floor in the ICU. She is unresponsive. She is at her baseline. She is at vegetative state. She is on a mechanical ventilation. She has a significant sacral wound. The patient was found to be anemic and possibly underlying urinary tract infection noted. Critical Care has been consulted including Wound Care and ID. She is on broad-spectrum IV antibiotic therapy. REVIEW OF SYSTEMS: I am not able to obtain review of systems. ALLERGIES: NO KNOWN DRUG ALLERGIES. MEDICATIONS: At the half-way shows: 1. Acetaminophen. 2. Acetylcysteine. 3. Amlodipine. 4. Aspirin. 5. Lipitor. 6. Coreg. 7. Heparin. 8. Lactulose. 9. Levothyroxine. 10. Tramadol. 11. Levemir. 12. Prevacid. 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 PAST SURGICAL HISTORY: She had a craniotomy in the past. I am not able to obtain any other information due to the patient's baseline, has a tracheostomy, has a PEG tube placed. FAMILY HISTORY: Unable to obtain. SOCIAL HISTORY: [place] [facility] [place] [facility] [place]. PHYSICAL EXAMINATION: VITAL SIGNS: Temperature is 99.4, pulse 82, respiratory rate is 18, blood pressure is 113/76, and pulse ox 100% on mechanical ventilation, FiO2 of 40. GENERAL: She has tracheostomy on the vent. She is not responsive at baseline. PULMONARY: Vent, tracheostomy at baseline. CARDIOVASCULAR: Positive S1, S2. No murmurs, rubs, or gallops. GI: Abdomen is soft, nondistended, nontender to palpation. MUSCULOSKELETAL: She is in a vegetative state, this is her baseline. NEUROLOGIC: At her baseline. SKIN: She has a sacral wound, stage IV. LABORATORY DATA: Show white count was 13; hemoglobin 8.1, on admission her hemoglobin was 6.6; hematocrit is 26; and platelets of 232. Chemistry, sodium 134, potassium 4, chloride 101, bicarb 24, anion gap of 13, BUN is 20, creatinine 0.58, and glucose is 87. Lactic acid is 1.3. LFTs noted. Calcium 9.2, total bilirubin was 1, AST 23, ALT 13, alkaline phosphatase 104, BNP 408, total protein 7.6, and albumin 1.7. Troponins were all negative. Urinalysis noted to be UTI. Serology, coronavirus not detected. Flu was not detected. MICROBIOLOGY: Blood culture is pending. Urine culture shows gram-negative bacillus. IMAGING STUDIES: Chest x-ray shows diffuse bilateral airspace opacities representing edema and/or pneumonia. IMPRESSION: 1. Metabolic encephalopathy at baseline due to prior history of cerebrovascular accident and craniotomy in a vegetative state. 2. Prior history of cardiac arrest in July 2020. 3. Anemia of chronic disease. 4. Sepsis with leukocytosis secondary to urinary tract infection. 5. Stage IV sacral wound. 6. Medically debilitated, very poor prognosis, currently DNR, likely needs hospice. PLAN: At this time, the patient has pancultures, blood and urine cultures, in which currently the urine cultures becoming positive. Continue with IV antibiotic therapy. Consult with ID for further management and care. Pulmonary Critical Care was consulted for critical care management as well as the vent settings. A 2 units packed RBCs have been given with much improved hemoglobin. Get morning labs. Get wound care consultation. Local wound care provided. Put on IV Protonix for prophylaxis. Hold anticoagulation due to underlying anemia. Maintain on broad-spectrum antibiotics. Consultants involved ID, Wound Care, Pulmonary Critical Care. I spoke with her sister, her name is Noemi, by phone, who apparently makes medical decisions on behalf of her sister. Apparently, Noemi has made decisions for her sister on several occasions. Currently, the patient does not have any children and has just a spouse, but the spouse is really old and he is severely demented according to Noemi and the only decision-making person is Noemi, who is the sister of the patient, Ms. Lowery. At this time, the patient has been at this hospital many times and she has been in a vegetative state for significant number of months if not years and this is currently her baseline. At this time, she knows that her sister is very ill and sick and wants her sister to be DNR, which was placed in the ER already. [facility] The patient truly benefit from hospice care as she is severely debilitated in a vegetative state. Her prognosis is significantly poor. I will speak to Ms. Franklin about this, but she was well aware of this on prior admissions, and she has refused about placing her sister on hospice. At this time, she has agreed to DNR/DNI, which was ordered in the ER and I discussed the plan of care, which she verbalized understanding. MD SEGUNDO Rodriguez/AROLDO /[id number]
[2020-09-15 13:37] LABS: % IRON SATURATION 15 % (15-50); IRON 34 ug/dL (50-170); TOTAL IRON BINDING CAPACITY 223 ug/dL (261-478); TRANSFERRIN 159 mg/dL (180-382)
[2020-09-15] MEDS: ACETYLCYSTEINE 200 MG/ML 4ML VIAL INH SCH (14:00)
[2020-09-15] MEDS: MEROPENEM 500MG/ NS 50ML 50 ML IV SCH ×2 (14:14→20:57)
[2020-09-15] MEDS: HEPARIN SOD (PORCINE) 5,000 UNIT/ML VIAL SC SCH (14:14)
[2020-09-15 14:28] LABS: ABG HCO3 24 mmol/L (22-26); ABG PCO2 29 mmHg (35-45); ABG PH 7.53 (7.35-7.45); ABG PO2 95 mmHg (80-105); ABG TCO2 25
--- NOTE | 2020-09-15 14:36 | Consultation ---
DATE OF CONSULTATION: Pulmonary Consultation. 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 ALLERGIES: SHE HAS NO KNOWN ALLERGIES. MEDICATIONS: Include Mucomyst, amlodipine, aspirin, Coreg, Lipitor, Prevacid, subcutaneous heparin, and insulin. Unable to relate her history. She is in a vegetative state, is ventilator dependent, admitted through the emergency room department, was found to be anemic in [facility] and was referred for transfusion. There is a DNR status. PHYSICAL EXAMINATION: VITAL SIGNS: Temperature 99.4, pulse 88, respirations 23, blood pressure 113/80. Craniotomy defect. LUNGS: Bilateral rhonchi. Tracheostomy in place. HEART: Regular rhythm. ABDOMEN: PEG is in place. EXTREMITIES: Nonedematous. She is in a position with contractures and sacral wound. IMPRESSION: There is evidence of urinary tract infection, bilateral pneumonia, and anemia presumably iron deficiency. PLAN: Empiric antibiotic therapy. General supportive care, wound care, ventilator support, tube feeding, empiric antibiotics for presumed aspiration. CT scan in the past has revealed right hemispheric craniectomy with underlying old right middle cerebral artery territorial infarct. The right cerebral hemisphere slightly herniates the right craniotomy defect. Long-term prognosis is grim. Persistent vegetative state. Thank you for this kind referral. MD TIANNA Haley/MODL /[id number]
[2020-09-15] MEDS: PANTOPRAZOLE 40 MG 10ML VIAL IV SCH (16:35)
[2020-09-15] MEDS: CARVEDILOL 12.5 MG TAB PEG SCH (16:35)
[2020-09-15] MEDS ORDERED: ENOXAPARIN SOD INJ 40 MG/0.4 ML SYR SC SCH (17:00)
[2020-09-15 18:57] LABS: CREATINE KINASE MB 2.4 ng/mL (0-5.0)
[2020-09-15] MEDS: ALBUTEROL/IPRATROPIUM 3 ML NEB NEB SCH (19:00)
[2020-09-15] MEDS: ATORVASTATIN 40 MG TAB PEG SCH (20:57)
[2020-09-15] MEDS ORDERED: ATORVASTATIN 20 MG TAB PEG SCH (21:00)
[2020-09-15] MEDS: VANCOMYCIN 1GM/NS 250 ML 250 ML IV SCH (22:07)
[2020-09-16] VITALS (23 sets, daily range): BP systolic 104–130; BP diastolic 57–72
[2020-09-16] MEDS: ALBUTEROL/IPRATROPIUM 3 ML NEB NEB SCH ×5 (01:00→20:40)
[2020-09-16] MEDS: MEROPENEM 500MG/ NS 50ML 50 ML IV SCH ×4 (01:23→20:24)
[2020-09-16] MEDS: HEPARIN SOD (PORCINE) 5,000 UNIT/ML VIAL SC SCH ×2 (01:26→16:35)
[2020-09-16] MEDS: ACETYLCYSTEINE 200 MG/ML 4ML VIAL INH SCH ×4 (02:00→20:40)
[2020-09-16 03:59] LABS: BASOPHILS % 0.3 % (0.0-1.0); EOSINOPHILS # (AUTO) 0.1 (0.0-0.4); HEMATOCRIT 26.4 % (34.2-44.1); HEMOGLOBIN 8.2 g/dL (12.0-16.0); LYMPHOCYTES % 7.9 % (18.0-39.1); MEAN CORPUSCULAR HEMOGLOBIN 23.8 pg (28-32); MEAN CORPUSCULAR HGB CONC 31.1 g/dL (31-35); MEAN CORPUSCULAR VOLUME 76.5 fL (81-99); MONOCYTES % 7.7 % (4.4-11.3); NEUTROPHILS # (AUTO) 10.3 (2.1-6.9); NEUTROPHILS % 82.2 % (38.7-80.0); PLATELET COUNT 239 x10e3/uL (140-360); RED BLOOD COUNT 3.45 x10e6/uL (3.6-5.1); RED CELL DISTRIBUTION WIDTH 17.2 % (11.7-14.4)
[2020-09-16 04:16] LABS: ANION GAP 13.7 mmol/L (8-16); BLOOD UREA NITROGEN 20 mg/dL (7-26); BUN/CREATININE RATIO 30 (6-25); CARBON DIOXIDE 24 mmol/L (22-29); CHLORIDE 102 mmol/L (98-107); CREATININE, SERUM 0.66 mg/dL (0.57-1.11); EST GLOMERULAR FILTRATION RATE > 60 ML/MIN (60-); GLUCOSE 119 mg/dL (74-118); POTASSIUM 3.7 mmol/L (3.5-5.1); SODIUM 136 mmol/L (136-145)
[2020-09-16] MEDS ORDERED: PANTOPRAZOLE SOD 40 MG TABEC PO SCH (07:30)
[2020-09-16] MEDS: ASPIRIN 81 MG CHEW TAB PEG SCH (08:16)
[2020-09-16] MEDS: PANTOPRAZOLE 40 MG 10ML VIAL IV SCH ×2 (08:16→16:37)
[2020-09-16] MEDS: LEVOTHYROXINE SODIUM 50 MCG TAB PEG SCH (08:17)
[2020-09-16] MEDS: CARVEDILOL 12.5 MG TAB PEG SCH ×2 (08:17→16:37)
[2020-09-16] MEDS: POLYETHYLENE GLYCOL 3350 17 GM PACK PEG SCH (08:17)
--- NOTE | 2020-09-16 09:34 | Consultation ---
DATE OF CONSULTATION: The patient is seen and evaluated, available labs and notes reviewed. HISTORY OF PRESENT ILLNESS: This is a 75-year-old female, who was transferred from long term facility due to anemia with hemoglobin of 6.6 and leukocytosis of 25,000 per my discussion and verbal report from nursing staff. The patient was afebrile on the day of transfer. Overall, the patient nonresponsive in a vegetative state and no other symptoms were reported. PAST MEDICAL HISTORY: CVA, chronic respiratory failure, dysphagia, debility/bedbound, vegetative state, hypothyroidism, emphysema, hypertension, multiple wounds, contracted extremities. PAST SURGICAL HISTORY: Craniotomy, tracheostomy, and feeding tube placement. SOCIAL HISTORY: The patient is bedbound, senior care/SNF resident with no recent history of tobacco, alcohol or illicit drugs. The patient is in a vegetative state. ALLERGIES: NO KNOWN ALLERGIES. MEDICATION LIST: The patient is on vancomycin IV and meropenem from ID point of view. LABORATORY STUDIES: White count of 12.49, hemoglobin 8.2, platelet 239. Sodium 136, potassium 3.7, creatinine 0.66, AST 23, ALT 13, ALP 104. COVID-19 PCR not detected on 09/14/2020. Influenza A and B negative. RADIOLOGY STUDIES: Chest x-ray showed diffuse bilateral airspace opacities representing edema and/or pneumonia, slightly worsened compared to prior x-ray. MICROBIOLOGY: Blood culture negative. Urine showed gram-negative bacilli. REVIEW OF SYSTEMS: Unable to obtain review of systems due to the patient's medical condition. PHYSICAL EXAMINATION: GENERAL: Comfortable in bed, no acute distress, trach and vent. Feeding tube. CV: S1-S2. CHEST: Decreased breath sounds. Equal expansion. No acute distress. ABDOMEN: Soft. Positive bowel sounds. EXTREMITIES: Multiple wounds and contracted. ASSESSMENT: 1. Leukocytosis, most likely due to urinary tract infection and pneumonia. 2. Urinary tract infection. 3. Pneumonia. 4. Anemia. 5. Multiple wounds. 6. Respiratory failure, chronic. 7. Dysphagia. 8. Aspiration risk. 9. Gastritis/gastroesophageal reflux disease. 10. Hyperlipidemia. PLAN: Continue with antibiotics at this point. Follow up with the cultures. Follow up with the labs. Further management of this patient is based on laboratory and physical examination as more information comes in. Discussed with Dr. Byrd in details. We will get vancomycin trough. Please refer to chart for more information. Thank you for this dictation. MD LEDY Helton/AROLDO /[id number]
[2020-09-16] MEDS ORDERED: SODIUM HYPOCHLORITE 0.25% 480 ML SOLN IR ONE (10:15)
--- NOTE | 2020-09-16 11:05 | NUR ---
WOUND CARE CONSULT 75 YO FEMALE HX OF ANEMIA NAILA 6 0N STRICT PUP STATUS AND INTERVENTIONS ON ALTERNATING PRESSURE SURFACE LABS: WBC- 12.49 HGB- 8.2 GLUCOSE-PENDING POSITIVE WOUND AND BLOOD CULTURES WITH ANTIBIOTIC COVERAGE HEAD TO TOE SKIN ASSESSMENT COMPLETE PATIENT PRESENTS WITH SACRAL STAGE 4 ULCERATION 17CM X10CM X 3CM UNDERMINING FULL CIRCUMFERENCE 4CM RECOMMENDATIONS: NURSING TO CONTINUE TO MONITOR PATIENT AND KEEP SKIN CLEAN AND FREE FROM LOOSE STOOL OR IRRITATING MOISTURE AND CONTINUE TO FOLLOW STRICT PUP STATUS INTERVENTIONS NURSING TO CONTINUE TO MAINTAIN PATIENT NUTRITIONAL SUPPORT FOR OPTIMUM HEALING NURSING TO CLEAN SACRAL STAGE 4 ULCERATION WITH DAKINS DAILY AND APPLY SILVERSORB GELL AND GUASE PACKING TO WOUND BED AND UNDERMINING AND COVER WITH ALLEVYN FOAM DRESSING Addendum: 09/16/20 at 1115 by René Collins RN Amended: Links added.
--- NOTE | 2020-09-16 11:30 | Consultation ---
DATE OF CONSULTATION: Wound consultation HISTORY OF PRESENT ILLNESS: A 75-year-old black female patient, history of stroke, chronically bed-bound, had craniotomy in July 2020, and also had a cardiac arrest status post CPR, currently on mechanical ventilation through tracheostomy, dysphagia on PEG feeding, has chronic nonhealing sacral pressure ulcer, stage IV wound, the patient is contracted, vegetative state. PAST MEDICAL HISTORY: Stroke, hypothyroidism, hyperlipidemia, hypertension, left middle cerebral artery stenosis, chronic respiratory failure, and emphysema. PAST SURGICAL HISTORY: Status post craniotomy, tracheostomy, and PEG tube placement. PERSONAL HISTORY: No history of smoking, [facility] MEDICATIONS: Amlodipine, Lipitor, Coreg, levothyroxine, tramadol, and Levemir. PHYSICAL EXAMINATION: VITAL SIGNS: Height 63 inches, weight 131 pounds. HEENT: Normal. Remains eyes closed. NECK: Tracheostomy in place. LUNGS: Diminished air entry at the bases. CVS: Normal. ABDOMEN: Soft. PEG tube is in place. EXTREMITIES: Lower extremities contracted. SKIN: Sacral area, the patient has mid sacral stage IV pressure ulcer, measures 5 x 6 cm with undermining between 12 and 12 o'clock position for 3 cm and periwound area, there is stage III ulcer, 10 x 10 cm, bloody drainage noted, bone palpable, not exposed. ASSESSMENT: Sacral pressure ulcer stage IV, nonhealing, multiple comorbid unavoidable risk factors that will affect wound healing. This is a non-healable wound, so we will continue packing the wound with a Dakin's moistened 4 x 4, ABD, and tape. Thank you for consultation. We will follow up. MD CARLOS Pruitt/MODL /[id number]
[2020-09-16] MEDS: ATORVASTATIN 40 MG TAB PEG SCH (20:24)
[2020-09-16] MEDS: VANCOMYCIN 1GM/NS 250 ML 250 ML IV SCH (22:21)
[2020-09-17] VITALS (24 sets, daily range): BP systolic 96–137; BP diastolic 54–84
[2020-09-17] MEDS: MEROPENEM 500MG/ NS 50ML 50 ML IV SCH ×4 (02:02→20:45)
[2020-09-17] MEDS: HEPARIN SOD (PORCINE) 5,000 UNIT/ML VIAL SC SCH ×2 (02:10→13:48)
[2020-09-17] MEDS: ALBUTEROL/IPRATROPIUM 3 ML NEB NEB SCH ×5 (03:55→19:45)
[2020-09-17] MEDS: ACETYLCYSTEINE 200 MG/ML 4ML VIAL INH SCH ×2 (07:34→14:00)
[2020-09-17] MEDS: PANTOPRAZOLE 40 MG 10ML VIAL IV SCH ×2 (08:15→17:20)
[2020-09-17] MEDS: ASPIRIN 81 MG CHEW TAB PEG SCH (08:15)
[2020-09-17] MEDS: SODIUM HYPOCHLORITE 0.25% 480 ML SOLN IR SCH (08:15)
[2020-09-17] MEDS: POLYETHYLENE GLYCOL 3350 17 GM PACK PEG SCH (08:16)
[2020-09-17] MEDS: CARVEDILOL 12.5 MG TAB PEG SCH ×2 (08:16→17:20)
[2020-09-17] MEDS: LEVOTHYROXINE SODIUM 50 MCG TAB PEG SCH (08:16)
[2020-09-17 08:53] LABS: BASOPHILS % 0.2 % (0.0-1.0); EOSINOPHILS # (AUTO) 0.3 (0.0-0.4); EOSINOPHILS % 2.6 % (0.0-6.0); HEMATOCRIT 26.3 % (34.2-44.1); HEMOGLOBIN 8.2 g/dL (12.0-16.0); LYMPHOCYTES # (AUTO) 1.1 (1.0-3.2); LYMPHOCYTES % 9.1 % (18.0-39.1); MEAN CORPUSCULAR HGB CONC 31.2 g/dL (31-35); MEAN CORPUSCULAR VOLUME 77.1 fL (81-99); MONOCYTES # (AUTO) 0.8 (0.2-0.8); MONOCYTES % 6.7 % (4.4-11.3); NEUTROPHILS # (AUTO) 9.8 (2.1-6.9); PLATELET COUNT 238 x10e3/uL (140-360); RED BLOOD COUNT 3.41 x10e6/uL (3.6-5.1); RED CELL DISTRIBUTION WIDTH 17.3 % (11.7-14.4)
[2020-09-17 09:11] LABS: ANION GAP 12.5 mmol/L (8-16); BLOOD UREA NITROGEN 16 mg/dL (7-26); BUN/CREATININE RATIO 27 (6-25); CALCIUM 8.8 mg/dL (8.4-10.2); CARBON DIOXIDE 25 mmol/L (22-29); CHLORIDE 104 mmol/L (98-107); EST GLOMERULAR FILTRATION RATE > 60 ML/MIN (60-); GLUCOSE 141 mg/dL (74-118); POTASSIUM 3.5 mmol/L (3.5-5.1); SODIUM 138 mmol/L (136-145)
--- NOTE | 2020-09-17 10:22 | Progress Note ---
DATE: 09/16/2020 Medicine Progress Note. This is a late entry note. SUBJECTIVE: The patient is still at her baseline. She is in a vegetative state. This is her normal. She is in a vent. No overnight events. OBJECTIVE: VITAL SIGNS: She is afebrile, normotensive. Respiratory rate is good. GENERAL: She is vegetative state. This is her baseline, mechanical ventilation. Pulmonary and mechanical vent chronically. NEUROLOGICAL: Mechanical vent. She is in a vegetative state, does not respond. This is her baseline. MUSCULOSKELETAL: Unable to assess. CARDIOVASCULAR: Positive S1, S2. No murmurs, rubs, or gallops. ABDOMEN: Soft, nondistended, nontender to palpation. LAB FINDINGS: White count was 12, hemoglobin 8.2, hematocrit 26, and platelets were 239. Her chemistry reviewed sodium 136, potassium 3.7, chloride 102 bicarb 24, anion gap of 13, BUN 20, creatinine 0.66, and glucose is 119. MICROBIOLOGY: Urine cultures two species of gram-negative bacillus in the urine. Blood cultures, no growth. IMAGING STUDIES: Nothing new. IMPRESSION: 1. Metabolic encephalopathy at baseline due to prior history of cerebrovascular accident in the past and craniotomy in a vegetative state at baseline. 2. History of cardiac arrest back in July 2020. 3. Anemia of chronic disease. 4. Sepsis with leukocytosis secondary to urinary tract infection. 5. Stage IV sacral wound. 6. Medically debilitated, very poor prognosis. DNR needs hospice. PLAN: At this time her galaviz cultures show blood cultures with no growth to date. Urine culture shows two species of gram-negative bacillus in which, she is on IV antibiotic therapy. ID has been consulted. Monitor accordingly. She is on IV antibiotic therapy. She did receive blood hemoglobin is better. Continue with IV Protonix for prophylaxis. We will hold anticoagulation due to underlying anemia. Pulmonary Critical Care has been consulted and managing her vent settings as well. We will get morning labs. I also will have Wound Care consulted to evaluate her sacral wound. We will get local wound care. Once again, the family wants to continue with medical management. She is DNR. Plan to discharge hopefully soon sometime early next week if stable [facility] to [facility]. MD SEGUNDO Rodriguez/AROLDO Womack: 09/17/2020 07:58:04 /[id number]
--- NOTE | 2020-09-17 10:34 | NUR ---
Nutrition Intervention Note RD Recommendation(s) for Physician: Change formula to Vital AF 1.2 at 60ml/hr via PEG (1728 kcals, 108g of protein 1440ml of fluid and 1167ml of free water) Plan of Care: RD following, monitoring for tolerance and adequacy Nutrition reason for involvement: [facility] RD Assessment Initial encounter with patient. Pt was not able to provide a nutrition Hx due to altered mental status. Pt is currently receiving Vital High Protein at 30ml/hr which provides 720 kcals, 63g of protein, and 601.92ml of free H2O. Current nutrition regimen is not adequate to meet estimated nutrition needs. Recommend to change formula to Vital AF 1.2 at 60ml/hr via PEG Principal Problems/Diagnoses: Suboptimal infusion of EN related to goal rate not reached as evidenced by the total volume of EN infused per day provides less than estimated energy and protein needs. PMH: CVA, craniotomy, stage 4 sacral wound, dysphagia, Anemia, respiratory failure, tracheostomy, vent dependent, PEG placement. GI: soft nondistended,on bowel regimen, Skin: Stage 4 sacral Labs: 09/17/2020) biochemical data reviewed Meds: (09/17/2020) MAR reviewed Ht:63 in. Wt:131.44 lbs BMI:23.3kg/M2 IBW:115lbs Malnutrition Evaluation (09/17/20) The patient does not meet criteria for a specified degree of malnutrition at this time. Will re-evaluate at follow-up as appropriate. Nutrition Prescription (Diet Order):NPO. Vital High Protein at 30ml/hr via PEG Estimated Nutritional Needs: 1493-1792calories/day ( 25-30kcals/kg/BW) 72-89g protein/day (1.2-1.5 g pro/kg/BW) Diet Adequacy: Not meeting calorie needs, Not meeting protein needs Diet Education Needs Assessment: Diet education not indicated. Nutrition Care Level: Moderate Nutrition Diagnosis: Suboptimal infusion of En related to goal rate not reached as evidenced by the toal volume of EN infused per day provides less than estimated energy and protein needs. Goal: Patient will meet 75-100% of estimated needs by follow up Progress: (Progressing) Interventions: Commercial food, Composition, Rate, Route, IVF, Prescription medications Monitoring/Evaluation: Total energy intake, Total protein intake, Formula/Solution, IVF, Prescription medication, Weight change. Signed: Sonido Miner RD, [facility], [facility]
--- NOTE | 2020-09-17 14:08 | Progress Note ---
DATE: 09/17/2020 Medicine Progress Note SUBJECTIVE: The patient is still on a mechanical ventilation at baseline bed-bound. In a vegetative state, this is her baseline. No overnight events. PHYSICAL EXAMINATION: VITAL SIGNS: Temperature is 98, pulse 70, respiratory rate 16, blood pressure 115/60, pulse ox 100% on mechanical ventilation, FiO2 50. GENERAL: She is on a trach on a ventilation. She is not responsive. This is her baseline. PULMONARY: Trach vented baseline, not responsive. CARDIOVASCULAR: Positive S1, S2. No murmurs, rubs, or gallops appreciated. ABDOMEN: Soft, nondistended, nontender to palpation. Bowel sounds present. MUSCULOSKELETAL: Unable to assess. She is in a vegetative state. NEUROLOGICAL: In a vegetative state. Unable to assess. LABORATORY DATA: Show white count 12, hemoglobin 8.2, hematocrit 26, and platelets of 238. Chemistry; sodium 138, potassium 3.5, chloride 104, bicarb 25, anion gap of 12, BUN 16, creatinine is 0.6, glucose is 141. Urinalysis noted. Toxicology screen vancomycin trough 17. Serology; coronavirus nondetected. Influenza negative. MICROBIOLOGY: Blood cultures x2 were found to be no growth. Urine culture shows Proteus mirabilis ESBL, gram-negative rods on the 2nd species. IMAGING STUDIES: Nothing new. IMPRESSION: 1. Metabolic encephalopathy. She has a history of cerebrovascular accident in the past with craniotomy, in a vegetative state at baseline. 2. History of cardiac arrest back in July of 2020. 3. Anemia of chronic disease. 4. Sepsis with leukocytosis secondary to extended spectrum beta-lactamases urinary tract infection. 5. Stage IV sacral wound. 6. Medically debilitated, very poor prognosis, she is DNR, needs hospice. PLAN: At this time, urine cultures were noted. She is on IV Merrem. Blood cultures no growth. Continue with IV antibiotics and ID is following. As for her hemoglobin is stable, continue with Protonix for prophylaxis. Hold anticoagulation due to underlying anemia. Pulmonary Critical Care is following as well. Wound Care is doing local wound care as well. She is otherwise at her baseline. Vegetative state on the vent. She is DNR. Plan to discharge hopefully soon in the next several days to [facility] which she resides. MD SEGUNDO Rodriguez/ELLIEL /[id number]
--- NOTE | 2020-09-17 18:35 | NUR ---
INFECTIOUS DISEASE PROGRESS NOTE DR. SPARKLE VALDIVIA The patient is seen and evaluated, available labs and notes reviewed. HISTORY OF PRESENT ILLNESS: This is a 75-year-old female, who was transferred from [facility] facility due to anemia with hemoglobin of 6.6 and leukocytosis of 25,000 per my discussion and verbal report from nursing staff. The patient was afebrile on the day of transfer. Overall, the patient nonresponsive in a vegetative state and no other symptoms were reported. PAST MEDICAL HISTORY: CVA, chronic respiratory failure, dysphagia, debility/bedbound, vegetative state, hypothyroidism, emphysema, hypertension, multiple wounds, contracted extremities. ALLERGIES: NO KNOWN ALLERGIES. MEDICATION LIST: The patient is on vancomycin IV and meropenem from ID point of view. LABORATORY STUDIES: per chart RADIOLOGY STUDIES: Chest x-ray showed diffuse bilateral airspace opacities representing edema and/or pneumonia, slightly worsened compared to prior x-ray. MICROBIOLOGY: Blood culture negative. Urine showed gram-negative bacilli. REVIEW OF SYSTEMS: Unable to obtain review of systems due to the patient's medical condition. PHYSICAL EXAMINATION: GENERAL: Comfortable in bed, no acute distress, trach and vent. Feeding tube. HEENT: normocephalic, atraumatic CV: S1-S2. no s3, s4 CHEST: Decreased breath sounds. Equal expansion. No acute distress. ABDOMEN: Soft. non-tender, Positive bowel sounds. EXTREMITIES: Multiple wounds and contracted. ASSESSMENT: 1. Leukocytosis, most likely due to urinary tract infection and pneumonia. 2. Urinary tract infection. 3. Pneumonia. 4. Anemia. 5. Multiple wounds. 6. Respiratory failure, chronic. 7. Dysphagia. 8. Aspiration risk. 9. Gastritis/gastroesophageal reflux disease. 10. Hyperlipidemia. PLAN: Continue with antibiotics Follow up with the cultures. Follow up with the labs. Sparkle Valdivia M.D.
[2020-09-17] MEDS: ATORVASTATIN 40 MG TAB PEG SCH (20:45)
[2020-09-17] MEDS: VANCOMYCIN 1GM/NS 250 ML 250 ML IV SCH (22:02)
[2020-09-18] VITALS (25 sets, daily range): BP systolic 104–143; BP diastolic 56–87
[2020-09-18] MEDS: ACETYLCYSTEINE 200 MG/ML 4ML VIAL INH SCH ×3 (00:05→14:00)
[2020-09-18] MEDS: HEPARIN SOD (PORCINE) 5,000 UNIT/ML VIAL SC SCH ×2 (01:34→14:26)
[2020-09-18] MEDS: MEROPENEM 500MG/ NS 50ML 50 ML IV SCH ×4 (01:40→20:31)
[2020-09-18 05:37] LABS: BASOPHILS # (AUTO) 0.1 (0.0-0.1); BASOPHILS % 0.4 % (0.0-1.0); EOSINOPHILS # (AUTO) 0.4 (0.0-0.4); EOSINOPHILS % 2.9 % (0.0-6.0); HEMOGLOBIN 8.5 g/dL (12.0-16.0); LYMPHOCYTES # (AUTO) 1.3 (1.0-3.2); LYMPHOCYTES % 9.4 % (18.0-39.1); MEAN CORPUSCULAR HGB CONC 30.4 g/dL (31-35); MEAN CORPUSCULAR VOLUME 79.1 fL (81-99); MONOCYTES # (AUTO) 1.1 (0.2-0.8); MONOCYTES % 7.9 % (4.4-11.3); NEUTROPHILS # (AUTO) 10.6 (2.1-6.9); NEUTROPHILS % 77.9 % (38.7-80.0); PLATELET COUNT 245 x10e3/uL (140-360); RED BLOOD COUNT 3.54 x10e6/uL (3.6-5.1); RED CELL DISTRIBUTION WIDTH 17.6 % (11.7-14.4)
[2020-09-18 06:09] LABS: ANION GAP 13.1 mmol/L (8-16); BLOOD UREA NITROGEN 14 mg/dL (7-26); BUN/CREATININE RATIO 24 (6-25); CARBON DIOXIDE 24 mmol/L (22-29); CHLORIDE 103 mmol/L (98-107); CREATININE, SERUM 0.58 mg/dL (0.57-1.11); EST GLOMERULAR FILTRATION RATE > 60 ML/MIN (60-); GLUCOSE 132 mg/dL (74-118); POTASSIUM 4.1 mmol/L (3.5-5.1); SODIUM 136 mmol/L (136-145)
[2020-09-18] MEDS: ALBUTEROL/IPRATROPIUM 3 ML NEB NEB SCH ×3 (07:55→19:55)
[2020-09-18] MEDS: LEVOTHYROXINE SODIUM 50 MCG TAB PEG SCH (08:18)
[2020-09-18] MEDS: ASPIRIN 81 MG CHEW TAB PEG SCH (08:18)
[2020-09-18] MEDS: PANTOPRAZOLE 40 MG 10ML VIAL IV SCH ×2 (08:18→16:11)
[2020-09-18] MEDS: POLYETHYLENE GLYCOL 3350 17 GM PACK PEG SCH (08:18)
[2020-09-18] MEDS: CARVEDILOL 12.5 MG TAB PEG SCH ×2 (10:37→16:14)
[2020-09-18] MEDS: SODIUM HYPOCHLORITE 0.25% 480 ML SOLN IR SCH (10:38)
--- NOTE | 2020-09-18 13:37 | Progress Note ---
DATE: SUBJECTIVE: The patient is in persistent vegetative state, not responsive. This is her baseline. She is vent dependent. PHYSICAL EXAMINATION: VITAL SIGNS: Temperature 98.3, pulse of 80, blood pressure 143/84, respiratory rate is 18, the patient is on mechanical ventilator, FiO2 of 40%. HEENT: The patient has history of craniotomy. The patient has Shiley 6-cuffed tracheostomy. CHEST: Clear to auscultation bilaterally. Occasional reduced air entry. HEART: S1, S2 audible. ABDOMEN: Soft. NEUROLOGIC: Mental status: The patient is baseline unresponsive and is in persistent vegetative state. LABORATORY DATA: Blood cultures, no growth after 72 hours. Urine culture, Proteus ESBL and Klebsiella. White count of 13,000, hemoglobin 8.5, platelets 245,000. Chemistry reviewed. ASSESSMENT/PLAN: Ms. Lowery is a 75-year-old female in persistent vegetative state, history of craniotomy and stroke in the past. The patient is vent dependent [facility]. Current problem: 1. Persistent vegetative state, history of craniotomy and stroke in the past that is her baseline. 2. Vent dependent cannot be wean from the ventilator. 3. History of cardiac arrest in July when she was admitted here, sepsis and leukocytosis with ESBL in the urine. PLAN: Continue the patient on current antibiotics. Continue vent support. The patient will be continued on Mucomyst. Nebulizer treatment as ordered. Heparin subcu for DVT prophylaxis. Overall the patient's prognosis is very poor. Critical care time spent 40 minutes. MD ESVIN Hyde/AROLDO /[id number]
--- NOTE | 2020-09-18 18:48 | Progress Note ---
DATE: 09/18/2020 Medicine Progress Note. SUBJECTIVE: The patient is still at her vegetative state with no change. This is her baseline. No overnight events. PHYSICAL EXAMINATION: VITAL SIGNS: Temperature is 98.6, pulse 70, respiratory rate 16, and blood pressure is 110/68, 100% pulse ox. Mechanical ventilation, FiO2 of 50. GENERAL: She is trached, vegetative state at baseline, not responsive. PULMONARY: Trach ventilated at baseline. CARDIOVASCULAR: Positive S1 and S2. No murmurs, rubs, or gallops. ABDOMEN: Soft, nondistended, nontender to palpation. Bowel sounds present. MUSCULOSKELETAL: Unable to assess. NEUROLOGICAL: Unable to assess. LABS: Show white count was 13, hemoglobin 8.5, hematocrit is 28, platelets of 245. Chemistry, sodium 136, potassium 4.1, chloride 103, bicarb 24, anion gap of 13, BUN is 14, creatinine 0.58. MICROBIOLOGY: Urine cultures were noted. IMAGING STUDIES: Nothing new. IMPRESSION: 1. Metabolic encephalopathy with history of CVA in the past with craniotomy in a vegetative state at baseline. 2. History of cardiac arrest back in July of 2020. 3. Anemia of chronic disease. 4. Sepsis with leukocytosis secondary to ESBL urinary tract infection. 5. Stage IV sacral wound. 6. Medically debilitated, very poor prognosis. She is DNR, needs hospice. PLAN: At this time, urine cultures were noted. She is on IV antibiotics, being managed by Infectious Disease. Blood cultures no growth today. Hemoglobin is stable. Hold anticoagulation due to underlying anemia. Pulmonary Critical Care is following in terms of mechanical ventilation and critical care management. She is at her baseline in a vegetative state and not responsive. She is DNR. Possibly discharged over the next 1 to 2 days. Once I get the final recommendations by ID in terms of antibiotic therapy, she will [facility]. MD SEGUNDO Rodriguez/MODL /[id number]
[2020-09-18] MEDS: ATORVASTATIN 40 MG TAB PEG SCH (20:31)
[2020-09-18] MEDS ORDERED: SODIUM CHLORIDE 0.9% 250ML 250 ML ONE (20:36)
--- NOTE | 2020-09-18 22:06 | NUR ---
Dr. Nobles notified of blood noticed in urine, pinkish in color. New order received to DC heparin.
[2020-09-18] MEDS: VANCOMYCIN 1GM/NS 250 ML 250 ML IV SCH (22:52)
[2020-09-19] VITALS (24 sets, daily range): BP systolic 90–131; BP diastolic 51–77
[2020-09-19] MEDS: ALBUTEROL/IPRATROPIUM 3 ML NEB NEB SCH ×4 (01:10→20:54)
[2020-09-19] MEDS: MEROPENEM 500MG/ NS 50ML 50 ML IV SCH ×4 (02:20→19:45)
[2020-09-19 05:34] LABS: BASOPHILS # (AUTO) 0.1 (0.0-0.1); BASOPHILS % 0.6 % (0.0-1.0); EOSINOPHILS # (AUTO) 0.4 (0.0-0.4); EOSINOPHILS % 3.7 % (0.0-6.0); HEMOGLOBIN 8.2 g/dL (12.0-16.0); LYMPHOCYTES # (AUTO) 1.3 (1.0-3.2); LYMPHOCYTES % 11.1 % (18.0-39.1); MEAN CORPUSCULAR HGB CONC 30.4 g/dL (31-35); MEAN CORPUSCULAR VOLUME 78.9 fL (81-99); MONOCYTES % 8.7 % (4.4-11.3); NEUTROPHILS # (AUTO) 8.4 (2.1-6.9); NEUTROPHILS % 74.6 % (38.7-80.0); PLATELET COUNT 222 x10e3/uL (140-360); RED BLOOD COUNT 3.42 x10e6/uL (3.6-5.1); RED CELL DISTRIBUTION WIDTH 18.1 % (11.7-14.4)
[2020-09-19] MEDS: SODIUM HYPOCHLORITE 0.25% 480 ML SOLN IR SCH (05:41)
[2020-09-19 05:43] LABS: ANION GAP 9.8 mmol/L (8-16); BLOOD UREA NITROGEN 14 mg/dL (7-26); BUN/CREATININE RATIO 29 (6-25); CALCIUM 8.6 mg/dL (8.4-10.2); CARBON DIOXIDE 25 mmol/L (22-29); CHLORIDE 105 mmol/L (98-107); CREATININE, SERUM 0.48 mg/dL (0.57-1.11); EST GLOMERULAR FILTRATION RATE > 60 ML/MIN (60-); GLUCOSE 134 mg/dL (74-118); POTASSIUM 3.8 mmol/L (3.5-5.1); SODIUM 136 mmol/L (136-145)
[2020-09-19] MEDS: ACETYLCYSTEINE 200 MG/ML 4ML VIAL INH SCH ×2 (08:05→19:55)
[2020-09-19] MEDS: ASPIRIN 81 MG CHEW TAB PEG SCH (09:30)
[2020-09-19] MEDS: PANTOPRAZOLE 40 MG 10ML VIAL IV SCH ×2 (09:30→16:18)
[2020-09-19] MEDS: LEVOTHYROXINE SODIUM 50 MCG TAB PEG SCH (09:30)
[2020-09-19] MEDS: CARVEDILOL 12.5 MG TAB PEG SCH ×2 (09:30→16:18)
[2020-09-19] MEDS: POLYETHYLENE GLYCOL 3350 17 GM PACK PEG SCH (09:30)
--- NOTE | 2020-09-19 11:24 | NUR ---
Called and spoke to pt's sister Noemi Hensley regarding plan to transfer back to SNF in the next day or so. [facility] Gave permission to send clinicals to them. Choice letter for [facility] placed in front of chart. Will send clinicals once order received.
--- NOTE | 2020-09-19 13:42 | NUR ---
Received order for SNF. Pt will need 10 days of Merrem. Clinical sent to [facility]. Luiza with admissions was notified. Email: [email or web address]
--- NOTE | 2020-09-19 18:22 | Progress Note ---
DATE: SUBJECTIVE: Ms. Lowery remains in intensive care unit. This is a 75-year-old female from a [facility], noncommunicative, CVA, congestive heart failure, dysphagia, debility, bedbound, comes in with sepsis, aspiration pneumonia/UTI. Clinically significantly improved. PHYSICAL EXAMINATION: GENERAL: Currently alert, noncommunicative. VITAL SIGNS: Stable, afebrile. HEENT: She is not icteric. NECK: Supple. CHEST: Crackles. HEART: S1 and S2. ABDOMEN: Soft. IMPRESSION: Sepsis, aspiration pneumonia, urinary tract infection, , complicated medical history as mentioned above. PLAN: To continue with antibiotic as ordered. Finish 14 days. Currently on meropenem. We will follow. MD LEDY Helton/AROLDO /[id number]
--- NOTE | 2020-09-19 19:42 | Progress Note ---
DATE: SUBJECTIVE: The patient is in persistent vegetative state and ventilator dependent. PHYSICAL EXAMINATION: VITAL SIGNS: Temperature 97.8, pulse of 60, blood pressure 101/67, respiratory rate is 18, and O2 saturation is 100% on mechanical ventilator 40%. HEENT: Head is atraumatic. The patient has a tracheostomy, contracted with persistent vegetative state. LABORATORY DATA: Reviewed. ASSESSMENT: 1. Metabolic encephalopathy, altered mental status, history of cerebrovascular accident and history of craniotomy. The patient is in persistent vegetative state that is her baseline. History of cardiac arrest in July of 2020. 2. Chronic ventilator dependence and chronic tracheostomy, ESBL, urinary tract infection. PLAN: Continue the patient on ventilatory support and she cannot be weaned from the ventilator. IV antibiotics per ID. The [facility] for prolonged antibiotic secondary to ESBL and UTI. She has extremely poor prognosis. MD ESVIN Hyde/AROLDO /[id number]
[2020-09-19] MEDS: ATORVASTATIN 40 MG TAB PEG SCH (21:03)
--- NOTE | 2020-09-19 22:30 | NUR ---
called and left a message to Nikia Castaneda through result is 15.5; awaiting for call back.
[2020-09-19] MEDS: VANCOMYCIN 1GM/NS 250 ML 250 ML IV SCH (23:18)
[2020-09-20] VITALS (17 sets, daily range): BP systolic 97–113; BP diastolic 53–72
[2020-09-20] MEDS: ALBUTEROL/IPRATROPIUM 3 ML NEB NEB SCH ×3 (00:15→12:40)
[2020-09-20] MEDS: MEROPENEM 500MG/ NS 50ML 50 ML IV SCH ×3 (02:10→13:38)
[2020-09-20] MEDS ORDERED: LEVOTHYROXINE SODIUM 25 MCG TABLET PO SCH (06:00)
[2020-09-20] MEDS: ACETYLCYSTEINE 200 MG/ML 4ML VIAL INH SCH (07:26)
[2020-09-20 08:31] LABS: BASOPHILS % 0.4 % (0.0-1.0); EOSINOPHILS # (AUTO) 0.4 (0.0-0.4); EOSINOPHILS % 3.5 % (0.0-6.0); HEMATOCRIT 27.6 % (34.2-44.1); HEMOGLOBIN 8.4 g/dL (12.0-16.0); LYMPHOCYTES # (AUTO) 1.1 (1.0-3.2); LYMPHOCYTES % 11.6 % (18.0-39.1); MEAN CORPUSCULAR HEMOGLOBIN 24.3 pg (28-32); MEAN CORPUSCULAR HGB CONC 30.4 g/dL (31-35); MONOCYTES # (AUTO) 0.9 (0.2-0.8); NEUTROPHILS # (AUTO) 7.3 (2.1-6.9); NEUTROPHILS % 74.4 % (38.7-80.0); PLATELET COUNT 220 x10e3/uL (140-360); RED BLOOD COUNT 3.45 x10e6/uL (3.6-5.1); RED CELL DISTRIBUTION WIDTH 18.2 % (11.7-14.4)
[2020-09-20] MEDS: CARVEDILOL 12.5 MG TAB PEG SCH (08:38)
[2020-09-20] MEDS: PANTOPRAZOLE 40 MG 10ML VIAL IV SCH (08:38)
[2020-09-20] MEDS: ASPIRIN 81 MG CHEW TAB PEG SCH (08:38)
[2020-09-20] MEDS: SODIUM HYPOCHLORITE 0.25% 480 ML SOLN IR SCH (08:38)
[2020-09-20] MEDS: POLYETHYLENE GLYCOL 3350 17 GM PACK PEG SCH (08:40)
[2020-09-20 08:51] LABS: ALANINE AMINOTRANSFERASE 10 IU/L (0-55); ALBUMIN 1.7 g/dL (3.5-5.0); ALBUMIN/GLOBULIN RATIO 0.3 (0.8-2.0); ALKALINE PHOSPHATASE 87 IU/L (40-150); ANION GAP 12.8 mmol/L (8-16); BLOOD UREA NITROGEN 12 mg/dL (7-26); BUN/CREATININE RATIO 22 (6-25); CALCIUM 8.5 mg/dL (8.4-10.2); CARBON DIOXIDE 24 mmol/L (22-29); CHLORIDE 105 mmol/L (98-107); CREATININE, SERUM 0.55 mg/dL (0.57-1.11); EST GLOMERULAR FILTRATION RATE > 60 ML/MIN (60-); GLUCOSE 128 mg/dL (74-118); POTASSIUM 3.8 mmol/L (3.5-5.1); SODIUM 138 mmol/L (136-145)
--- NOTE | 2020-09-20 09:28 | NUR ---
USP FACILITY DISCHARGE INFORMATION PATIENT HAS BEEN ACCEPTED TO: [facility] [address] [place] [address] ACCEPTING CUSTOMER EXPERIENCE MANAGER: Henrietta HANSEN MD: Dr. Hernandez ROOM: 403A NURSE CALL REPORT TO: [phone], ask for 500 palencia nurse IMM SIGNED AND OBTAINED (if applicable): spoke with sister Noemi. She verbalized understanding. Signed copy in chart. THE FOLLOWING DOCUMENTS MUST ACCOMPANY PATIENT FOR TRANSFER: copy of chart, transfer MAR COPIED CHART: CM RTF: completed and given to TIMI Norton
--- NOTE | 2020-09-20 09:35 | Progress Note ---
DATE: 09/19/2020 Medicine Progress Note SUBJECTIVE: Still at baseline. I spoke with ID, recommends two weeks of IV Merrem antibiotics. The patient's current status with the other urine seems to be normal colonization. No change overnight. She is at her baseline. PHYSICAL EXAMINATION: VITAL SIGNS: Temperature is 98.2, pulse 76, respiratory rate 16, blood pressure is 113/64, pulse ox 100%, mechanical ventilation, FiO2 of 50. GENERAL: Vegetative state mechanical ventilator at baseline. CARDIOVASCULAR: Positive S1, S2. No murmurs, rubs, or gallops appreciated. ABDOMEN: Soft, nondistended, nontender to palpation. Bowel sounds present. MUSCULOSKELETAL: Unable to assess, vegetative state. NEUROLOGICAL: Vegetative state, unable to assess. LABORATORY DATA: Show white count 11, hemoglobin 8.2, hematocrit 27, and platelets of 222. Chemistry reviewed, stable. MICROBIOLOGY: Urine cultures were noted. Blood cultures, no growth. IMPRESSION: 1. Metabolic encephalopathy with history of cerebrovascular accident in the past with craniotomy and vegetative stated at baseline. 2. History of cardiac arrest back in July 2020. 3. Anemia of chronic disease. 4. Sepsis with leukocytosis secondary to extended spectrum beta-lactamases urinary tract infections. 5. Stage IV sacral wound. 6. Medically debilitated, very poor prognosis, DNR. She is DNR, needs hospice. PLAN: At this time, I spoke with ID, recommends two weeks of IV Merrem. The Klebsiella pneumoniae in the urine. He feels that there is likely a normal colonization and just need only Merrem at this time. Her hemoglobin is stable. Get morning labs. Consultants involved Pulmonary Critical Care. She is in vegetative state, not responsive. This is her norm. She is DNR. Plan is discharge back to [facility], potentially tomorrow to [facility]. Plan of care discussed with Case Management consult. MD SEGUNDO Rodriguez/AROLDO /[id number]
--- NOTE | 2020-09-20 10:05 | NUR ---
INFECTIOUS DISEASE PROGRESS NOTE DR. SPARKLE VALDIVIA The patient is seen and evaluated, available labs and notes reviewed. HISTORY OF PRESENT ILLNESS: This is a 75-year-old female, who was transferred from [facility] facility due to anemia with hemoglobin of 6.6 and leukocytosis of 25,000 per my discussion and verbal report from nursing staff. The patient was afebrile on the day of transfer. Overall, the patient nonresponsive in a vegetative state and no other symptoms were reported. PAST MEDICAL HISTORY: CVA, chronic respiratory failure, dysphagia, debility/bedbound, vegetative state, hypothyroidism, emphysema, hypertension, multiple wounds, contracted extremities. ALLERGIES: NO KNOWN ALLERGIES. MEDICATION LIST: The patient is on vancomycin IV and meropenem from ID point of view. LABORATORY STUDIES: per chart RADIOLOGY STUDIES: per chart MICROBIOLOGY: Blood culture negative. Urine showed gram-negative bacilli. REVIEW OF SYSTEMS: Unable to obtain review of systems due to the patient's medical condition. PHYSICAL EXAMINATION: GENERAL: Comfortable in bed, no acute distress, trach and vent. Feeding tube. HEENT: normocephalic, atraumatic CV: S1-S2. no s3, s4 CHEST: Decreased breath sounds. Equal expansion. No acute distress. ABDOMEN: Soft. non-tender, Positive bowel sounds. EXTREMITIES: Multiple wounds and contracted. Neuro: unable to obtain ASSESSMENT: 1. Leukocytosis, most likely due to urinary tract infection and pneumonia. 2. Urinary tract infection. 3. Pneumonia. 4. Anemia. 5. Multiple wounds. 6. Respiratory failure, chronic. 7. Dysphagia. 8. Aspiration risk. 9. Gastritis/gastroesophageal reflux disease. 10. Hyperlipidemia. PLAN: continue with merrem culture results noted supportive care Sparkle Valdivia M.D.
--- NOTE | 2020-09-20 11:56 | Progress Note ---
DATE: SUBJECTIVE: The patient is in persistent vegetative state. No response. OBJECTIVE: VITAL SIGNS: Temperature 98.2, pulse of 71, blood pressure 113/59, respiratory rate of 18, and O2 saturation 99%. She is on mechanical ventilator, 50% FiO2. CHEST: Decreased air entry. HEART: S1, S2 audible. ABDOMEN: Soft. EXTREMITIES: No pedal edema. LABORATORY DATA: White cell count is down to 9000, hemoglobin 8.4. BNP is improved as well. ASSESSMENT: Ms. Lowery is a 75-year-old female, persistent vegetative state, has a trach and PEG. The patient is vent dependent. Current problems: 1. Altered mental status and persistent vegetative state secondary to history of stroke, history of recent cardiac arrest. The patient is debilitated and malnourished. 2. History of craniotomy in remote past. 3. Tracheostomy and gastrostomy status. 4. Urinary tract infection. PLAN: IV antibiotics per ID recommendations. The patient is vent dependent and can be transferred back to [facility] when cleared by other services for IV antibiotics. The patient has a PICC line. MD ESVIN Hyde/AROLDO /[id number]
--- NOTE | 2020-09-20 15:47 | NUR ---
Per Dr. Yo patient can be discharged [facility] to [facility] today. Orders given to continue meropenem for 2 more weeks, stop date Deceme (this is noted on transfer dec done by dr. yo). Case management made aware that there is no out of hospital dnr, case management working on obtaining from [facility]. Dr. yo informed as well of lack of out of hospital dnr, no new orders. report called to [facility]. [facility] picked up patient and respiratory at bedside. Patient does not appear to be in any s/s of distress at this time.
--- NOTE | 2020-09-21 15:53 | Discharge Summary ---
FINAL DISCHARGE DIAGNOSES: 1. Metabolic encephalopathy at baseline with history of cerebrovascular accident in the past and vegetative state, history of craniotomy. This is her baseline on a mechanical ventilation. 2. History of cardiac arrest back in July 2020. 3. Anemia of chronic disease. 4. Sepsis with leukocytosis, secondary to extended-spectrum beta-lactamase urinary tract infection. 5. Stage IV sacral wound, chronic. 6. Medically debilitated, very poor prognosis, DNR. 7. The patient is currently at her baseline vegetative state from a history of a craniotomy. CONSULTANTS: Pulmonary Critical Care and ID. PHYSICAL EXAMINATION: VITAL SIGNS: Temperature is 98, pulse 67, respiratory rate 16, blood pressure 103/65, pulse ox 100% on mechanical ventilation, FiO2 of 50%. LABORATORY DATA: Labs show white count 9.8, hemoglobin 8.4, hematocrit 27.6, and platelets 220. Chemistry; sodium 138, potassium 3.8, chloride 105, bicarb 24, anion gap of 12, BUN 12, creatinine 0.55. MICROBIOLOGY: Blood cultures, no growth to date. Urine culture, shows Proteus ESBL and Klebsiella pneumoniae. IMAGING STUDIES: Chest x-ray shows diffuse bilateral airspace opacities, representing edema or pneumonia. HOSPITAL COURSE: A 75-year-old female with history of craniotomy in a vegetative state from a prior CVA, chronic tracheostomy on mechanical ventilation, who currently resides at [facility]. She came in with underlying fever, was treated for underlying sepsis. The patient maintained on broad-spectrum IV antibiotics. She maintained on mechanical ventilation. Pulmonary Critical Care and ID were consulted. Blood cultures were negative. Urine culture shows Proteus mirabilis ESBL Klebsiella pneumoniae. The patient maintained on IV Merrem. She had a PICC line inserted and she will continue with IV Merrem for two additional more weeks. Please see med reconciliation for final details. While here, the patient improved. Pulmonary Critical Care was managing her. She is chronically on a tracheostomy, on mechanical ventilation. She was apparently still at her baseline. No change. I spoke with the family, who was a sister over the phone and she wanted her sister to be DNR. Also, local wound care was provided for the sacral wound. The patient was cleared for discharge by all consultants. She was afebrile prior to being discharged to [facility]. On the day of discharge, vital signs were stable. Labs were reviewed and stable. The patient was seen, evaluated, and examined thoroughly on the day of discharge. No other complaints. The patient will be transferred to [facility] for further management and care. MEDICATIONS: See med reconciliation form. DISPOSITION: [facility] intermediate facility. CONDITION: Guarded. In the event of worsening symptoms, the patient come back to the ER for further evaluation and management. Plan of care was discussed with nursing staff. Spent more than 35 minutes. Prognosis is very poor in this sick individual due to multiple comorbidities and overall state. MD SEGUNDO Rodriguez/MODL /[id number]
== END 2020-09-20 15:57 | DRG 698 ==
LOC: ER 19:35 → ERHOLD 21:36 → ICU 22:42
PROVIDERS: ADMIT Internal Medicine; ATTEND Internal Medicine
PROC: 5A1955Z Respiratory Ventilation, Greater than 96 Consecutive Hours (ICD-10-PCS; principal; 2020-09-14)
PROC: 02HV33Z Insertion of Infusion Device into Superior Vena Cava, Percutaneous Approach (ICD-10-PCS; 2020-09-15)
DX: T83.518A Infection and inflammatory reaction due to other urinary catheter, initial encounter (principal); A41.9 Sepsis, unspecified organism; L89.154 Pressure ulcer of sacral region, stage 4; L89.304 Pressure ulcer of unspecified buttock, stage 4; G93.41 Metabolic encephalopathy; J15.9 Unspecified bacterial pneumonia; N39.0 Urinary tract infection, site not specified; R40.3 Persistent vegetative state; Z86.73 Personal history of transient ischemic attack (TIA), and cerebral infarction without residual deficits; Z86.74 Personal history of sudden cardiac arrest; D63.8 Anemia in other chronic diseases classified elsewhere; Z20.828 Contact with and (suspected) exposure to other viral communicable diseases; Z66 Do not resuscitate; Z93.0 Tracheostomy status; Z93.1 Gastrostomy status; I69.398 Other sequelae of cerebral infarction
CPT/HCPCS: 36415; 36569; 36600; 71045; 80048; 80053; 80202; 81001; 82550; 82553; 82805; 83540; 83605; 83880; 84466; 84484; 85025; 86850; 86900; 86920; 87040; 87086; 87186; 87400; 93005; 94002; 94003; 94640; 97139; 99251; 99284; J0696; J1644; J3370; J7050; P9016; U0002